=== PATIENT | female | born 1990 | race Caucasian/White ===

== ENCOUNTER 2022-11-12 13:40 | Emergency (ER) | payer MEDICAID, SELFPAY ==
[2022-11-12 13:52] VITALS: BP 122/76; PULSE 118; RESP 15; TEMP 36.9; O2SAT 100
--- NOTE | 2022-11-12 14:15 | DI.RAD_ITS ---
Exam(s) XR ANKLE RT COMPLETE EXAM: XR ANKLE RT COMPLETE CLINICAL HISTORY: pain. TECHNIQUE: 2D digital imaging was performed. Three views. COMPARISON: No exams were available for comparison FINDINGS: BONES: There is a small sliver of bone adjacent to the tip of the lateral malleolus could represent a n acute avulsion fracture. Additional well corticated bony density seen between the fibula and talus which appears old. No bony destructive lesion is seen. JOINTS: The ankle mortise is normally aligned. SOFT TISSUE: Mild swelling. IMPRESSION: Avulsion fracture of the tip of the lateral malleolus. DATA REPOSITORY: RADIATION DOSE DELIVERED:
--- NOTE | 2022-11-12 15:14 | ED.GENADUL_ITS ---
Discharge Plan Disposition Patient Disposition: Home Condition: Stable Discharge Details Clinical Impression: Avulsion fracture of lateral malleolus of right fibula Primary Care Provider: Kian Coughlin ED Provider: Chuy Blankenship Home Meds and New Rx's Prescriptions: Continued cetirizine [Zyrtec] 10 mg Tablet 10 mg PO DAILY Asmanex Twisthaler 220 mcg/ actuation (120) aerosol powdr breath activated 2 inh INHALATION QHS Patient Comments: INHALE 2 PUFFS BY INHALATION ROUTE EVERY DAY AT NIGHTTIME Vyvanse 10 mg capsule 10 mg PO DAILY Patient Comments: TAKE 1 CAPSULE BY MOUTH TWICE A DAY Rx Instructions: can take BID PRN Discharge Instructions Instructions: Ankle Fracture (ED) Additional Instructions: Use orthopedic boot and crutches over the next 2 weeks. Weight-bear as tolerated. Please follow-up with orthopedics. Please take ibuprofen over the counter. Take 600mg by mouth every 6 hours as needed for pain. Please contact your primary care physician to arrange follow-up. Return to the ER immediately for any worsening or new concerning symptoms. Referrals: [facility] [Provider Group] Medical Decision Making 32-year-old female here after inversion injury to her right ankle last night. Patient has prior remote history of right ankle fracture. Patient is tender lateral malleolus. Concern for fracture versus sprain. X-ray of the right ankle was interpreted by radiology: Avulsion fracture of the tip of the lateral malleolus. Plan to immobilize with orthopedic boot and provide crutches. Weightbearing as tolerated. I will have her follow-up with orthopedics. Usual customary discharge instructions reviewed the patient. HPI General Mode of arrival: ambulatory . Date/Time Provider Initiated Documentation: 11/12/22 14:29 . Limitations to Documentation: no limitations . Information obtained by: patient . HPI Narrative: 32-year-old female presents with chief complaint of ankle pain. Patient notes last night she tripped while chasing her dog and inverted her right ankle. She notes she fractured her ankle remotely. Pain is localized to lateral malleolus and worse with ambulation. No associated numbness or tingling. No other injury. She has no proximal lower leg pain. Related Data Home Medications Medication Instructions Recorded Confirmed cetirizine 10 mg tablet (Zyrtec) 10 mg PO DAILY 11/12/22 11/12/22 lisdexamfetamine 10 mg capsule 10 mg PO DAILY 11/12/22 11/12/22 (Vyvanse) mometasone 220 mcg/actuation(120 2 inh inhalation QHS 11/12/22 11/12/22 doses)breath activated powder inhaler (Asmanex Twisthaler) Allergies Allergy/AdvReac Type Severity Reaction Status Date / Time epinephrine Allergy Severe Other (See Unverified 11/12/22 14:00 Comment) sertraline Allergy Severe Psychosis Unverified 11/12/22 14:00 General Stated Complaint: Orthopedic CRESENCIO: 4 Review of Systems Musculoskeletal Musculoskeletal: Reports as per HPI PFSH All Active Problems Avulsion fracture of lateral malleolus of right fibula (Acute) Social History Smoking/Tobacco Use Status: Never Smoking risk assessment performed?: Yes Alcohol Intake: never Drug use: Never Substance use type: does not use Do you feel safe at home: Yes Do you feel safe in your relationship?: Yes Exam Extrem Right lower extremity: lower leg Details: normal to inspection, ankle Details: tenderness Location: of the lateral malleolus, swelling Details: laterally and abnormal ROM Details: pain with active ROM Details: with plantar flexion, with dorsiflexion and with inversion and foot Details: normal to inspection Course Vital Signs Vital signs: Vital Signs Temperature 36.9 C 11/12/22 13:52 Pulse 118 H 11/12/22 13:52 Respiratory Rate 15 11/12/22 13:52 Blood Pressure 122/76 11/12/22 13:52 Pulse Oximetry 100 11/12/22 13:52 Temperature 36.9 C 11/12/22 13:52 Temperature Source Temporal Artery Scan 11/12/22 13:52 Pulse 118 H 11/12/22 13:52 Respiratory Rate 15 11/12/22 13:52 Respiratory Effort Normal 11/12/22 13:56 Blood Pressure 122/76 11/12/22 13:52 Blood Pressure Position Sitting 11/12/22 13:52 Pulse Oximetry 100 11/12/22 13:52 Oxygen Delivery Method Room Air 11/12/22 13:52 Oxygen Flow Rate 0 11/12/22 13:52 Pain Level 7 11/12/22 14:01
== END 2022-11-12 15:34 | disposition home or self-care (01) ==
PROVIDERS: Emergency Provider Student in an Organized Health Care Education/Training Program; PCP Nurse Practitioner Family
DX: S82.61XA Displaced fracture of lateral malleolus of right fibula, initial encounter for closed fracture (principal); W01.0XXA Fall on same level from slipping, tripping and stumbling without subsequent striking against object, initial encounter
CPT/HCPCS: 99283; 73610

== ENCOUNTER 2023-03-19 14:22 | Outpatient (REF) | payer MEDICAID, SELFPAY ==
--- NOTE | 2023-03-19 14:06 | SOFT_PTH ---
PATIENT: Deborah Benoit LOC: [facility] U#:[id number] AGE/SX: 32/F ROOM: RE03/19/[address]: PHILIPPE Redmond : 1990 BED: DIS: 03/19/2023 SPEC #: [id number] RECD: 03/19/23 17:39 STATUS: SIDDHARTH REQ #: [id number] DAGO: 03/19/23 14:[address]: Louise Maciel DEPT: Surgical Specimen RECD BY: Makeda Gardner ENTERED: 03/19/23 17:39 SP TYPE: SOFT OTHR DR: Kian Coughlin Tissues: 1 - SOFT TISSUE MISC (INC. LIPOMA) Procedures: GROSS AND MICRO LEVEL 3 Comments: [id number]
== END 2023-03-19 14:23 | disposition home or self-care (01) ==
LOC: LBN 14:22
PROVIDERS: PCP Nurse Practitioner Family; Visit Provider Physical Therapy Assistant
DX: D17.23 Benign lipomatous neoplasm of skin and subcutaneous tissue of right leg (principal)
CPT/HCPCS: 88304

== ENCOUNTER 2023-07-22 15:11 | Outpatient (CLI) | payer MEDICAID, SELFPAY ==
--- NOTE | 2023-07-22 15:00 | RT.EKG_ITS ---
APPROVED REPORT Exam: Resting ECG Reason for Exam: chest discomfort Patient Location: O HR:105 bpm ECG Measurements Heart Rate 105 AXIS AR 127 P 69 QRSd 83 QRS 62 QT 317 T 31 QTc 420 Conclusion Sinus tachycardia...rate> 99 Atrial premature complex...SV complex w/ short R-R interval Probable left atrial enlargement...P >50mS, <-0.10mV V1 RSR' in V1, normal variant
== END 2023-07-22 15:12 | disposition home or self-care (01) ==
LOC: DI.CM 15:12
PROVIDERS: PCP Nurse Practitioner Family; Visit Provider Nurse Practitioner Family
DX: R07.89 Other chest pain (principal)
CPT/HCPCS: 93010

== ENCOUNTER 2023-08-21 13:20 | Emergency (ER) | payer MEDICAID, SELFPAY ==
[2023-08-21] VITALS (13 sets, daily range): BP systolic 106–138; BP diastolic 55–98; PULSE 65–119; RESP 16–18; TEMP 36.1–37.2; O2SAT 98
--- NOTE | 2023-08-21 13:30 | DI.CT_ITS ---
Exam(s) CT ABDOMEN PELVIS W EXAM: CT ABDOMEN PELVIS W CLINICAL HISTORY: RUQ abd pain, diarrhea TECHNIQUE: Imaging Protocol: Axial computed tomography images with coronal and sagittal reformatted images were created and reviewed. CONTRAST MATERIAL: Intravenous: Omnipaque 350 Contrast volume:100 mL Oral: No COMPARISON: No exams were available for comparison FINDINGS: ABDOMEN: Lung Bases: Normal where visualized. Liver: Normal density. No measurable mass. Portal, Superior Mesenteric, and Splenic Veins: Unremarkable. Gallbladder and Biliary Tract: No radiodense calculus or dilation. Pancreas: Normal density, no abnormal calcifications or inflammatory process. Spleen: Normal. Adrenals: No masses seen. Kidneys: Normal size, contour and axis. No radiodense stones or obstructive uropathy. No masses seen. Abdominal Aorta: Abdominal portion non-dilated. Bowel: There is mild bowel wall thickening seen in the ascending transverse and descending colons. T here is mild inflammation seen in the hepatic flexure. The findings are suspicious for colitis. The re is no evidence of bowel obstruction. Appendix is unremarkable. Peritoneal Cavity: No ascites, collection or mesenteric inflammatory response. No free air. Lymph Nodes: Within normal limits. Bones: Within normal limits for the patient's age. Soft Tissues: There is a small fat containing umbilical hernia. PELVIS: Bladder: The urinary bladder is incompletely distended limiting evaluation. Reproductive Organs: There is an IUD in good position. Lymph Nodes: Within normal limits. Bones: Within normal limits for the patient's age. IMPRESSION: Bowel wall thickening involving the distal ascending colon transverse colon and portions of the desce nding colon consistent with infectious/inflammatory colitis. RADIATION DOSE DELIVERED: 948.04mGy.cm Total DLP DATA REPOSITORY: All CT scans at this facility are submitted to the National Radiology Data Registry (NRDR) Dose Index Registry (DIR) with the [employer] (A[employer]). RADIATION OPTIMIZATION: All CT scans at this facility use at least one of these dose optimization te chniques: automated exposure control; mA and/or kV adjustment per patient size (includes targeted exa ms where dose is matched to clinical indication); or iterative reconstruction.
--- NOTE | 2023-08-21 13:38 | ED.GENADUL_ITS ---
Discharge Plan Disposition Patient Disposition: Home Condition: Improving Discharge Details Chief Complaint: Abd Prob Clinical Impression: Colitis Primary Care Provider: Kian Coughlin ED Provider: Ramiro Ambriz Home Meds and New Rx's Prescriptions: No Action Liletta 20.4 mcg/24 hrs (8 yrs) 52 mg intrauterine device 1 device intrauterine ONCE Rx Instructions: as a single dose levalbuterol tartrate [Xopenex HFA] 45 mcg/actuation HFA aerosol inhaler 2 inh inhalation Q6H Canabanoid oil 20 mg See Rx Instructions translingual .COMPLEX Rx Instructions: translingually; guanfacine 2 mg tablet 2 mg PO DAILY cetirizine [Zyrtec] 10 mg Tablet 10 mg PO DAILY Asmanex Twisthaler 220 mcg/ actuation (120) aerosol powdr breath activated 2 inh INHALATION QHS Patient Comments: INHALE 2 PUFFS BY INHALATION ROUTE EVERY DAY AT NIGHTTIME lisdexamfetamine [Vyvanse] 10 mg capsule 10 mg PO DAILY Patient Comments: TAKE 1 CAPSULE BY MOUTH TWICE A DAY Rx Instructions: can take BID PRN Discharge Instructions Instructions: Colitis (ED) HPI General Date/Time Provider Initiated Documentation: 08/21/23 13:24 . HPI Narrative: 32-year-old female presents with right upper quadrant abdominal pain, had diarrhea earlier today that is slowing down slight nausea no vomiting. Related Data Home Medications Medication Instructions Recorded Confirmed cetirizine 10 mg tablet (Zyrtec) 10 mg PO DAILY 11/12/22 08/21/23 lisdexamfetamine 10 mg capsule 10 mg PO DAILY 11/12/22 08/21/23 (Vyvanse) mometasone 220 mcg/actuation(120 2 inh inhalation QHS 11/12/22 08/21/23 doses)breath activated powder inhaler (Asmanex Twisthaler) levonorgestrel 20.4 mcg/24 hr (up 1 device intrauterine ONCE 11/27/22 08/21/23 to 8 yrs) 52 mg intrauterine device (Liletta) Canabanoid oil See Rx Instructions translingual 03/18/23 08/21/23 .COMPLEX guanfacine 2 mg tablet 2 mg PO DAILY 03/18/23 08/21/23 levalbuterol tartrate 45 2 inh inhalation Q6H 03/18/23 08/21/23 mcg/actuation aerosol inhaler (Xopenex HFA) Allergies Allergy/AdvReac Type Severity Reaction Status Date / Time sertraline Allergy Severe Psychosis Unverified 08/21/23 13:27 epinephrine AdvReac Severe Other (See Unverified 08/21/23 13:27 Comment) augmentin AdvReac Severe Nausea Uncoded 08/21/23 13:27 General Stated Complaint: Abd Prob CRESENCIO: 3 Review of Systems Narrative: Review of Systems Constitutional: negative Eyes: negative ENT: negative Cardiovascular: negative Respiratory: negative Gastrointestinal: Abdominal pain, diarrhea nausea : negative Musculoskeletal: negative Skin: negative Neurologic: negative Psych: negative Exam Narrative Exam Narrative: Physical Examination General: alert, awake, cooperative, resting comfortably, no acute distress HEENT: normocephalic, atraumatic; PERRL, EOM intact, conjunctiva normal; no nasal discharge; moist mucous membranes, oral and pharyngeal mucosa normal, tolerating secretions Neck: supple, trachea midline; full ROM Chest: normal to inspection Respiratory: normal respiratory effort, speaking in full sentences, clear to auscultation, no wheezing, rales or rhonchi Cardiac: regular rate, regular rhythm, S1S2 intact, no murmurs rubs or gallops GI: abdomen soft, non-tender, non-distended; no palpable mass or hepatosplenomegaly Skin: no lesions, rashes or trauma appreciated Neuro: AAOx3, normal speech, moving all extremities Psych: Appropriate mood and affect Course Vital Signs Vital signs: Vital Signs Temperature 37.2 C 08/21/23 13:22 Pulse 119 H 08/21/23 13:22 Respiratory Rate 18 08/21/23 13:22 Blood Pressure 133/83 08/21/23 13:22 Pulse Oximetry 98 08/21/23 13:22 Temperature 37.2 C 08/21/23 13:22 Pulse 119 H 08/21/23 13:22 Respiratory Rate 18 08/21/23 13:22 Respiratory Effort Normal, Non-Labored 08/21/23 13:26 Blood Pressure 133/83 08/21/23 13:22 Blood Pressure Position Sitting 08/21/23 13:22 Pulse Oximetry 98 08/21/23 13:22 Oxygen Delivery Method Room Air 08/21/23 13:22 Oxygen Flow Rate 0 08/21/23 13:22 Pain Level 0 08/21/23 13:22 Medical Decision Making 32-year-old female presents with resolving diarrhea, now with right upper quadrant discomfort rating to her shoulders, mild nausea without vomiting. Family history of gallbladder issues. Abdomen soft nontender nondistended afebrile nontoxic moderately tachycardic on arrival. No active vomiting. Moist mucous membranes. Consider biliary colic versus gastroenteritis versus gastritis versus early cholecystitis versus appendicitis lower suspicion for pancreatitis. Will obtain urinalysis urine test. Bedside ultrasound showing normal thickness gallbladder no pericholecystic fluid or biliary stones. Gallbladder wall thickness 2 mm on bedside ultrasound. Will obtain basic labs CT abdomen pelvis fluids analgesia antiemetics close reassessment. Patient was on antibiotics recently doxycycline and Augmentin for sinusitis. Must consider C. difficile colitis however diarrhea is improving patient is nontoxic nonperitoneal 16: 13 resting actively no acute distress. Evidence of colitis. C. difficile PCR sent. Patient feeling much better resting comfortably Home care instruction return precautions given Quality:SDOH Health Related Social Needs: No Data to Display PFSH All Active Problems (Updated 08/21/23 @ 16:14 by Ramiro Ambriz MD) Colitis (Acute) Subcutaneous mass of right lower extremity (Acute) Medical History (Updated 08/21/23 @ 16:14 by Ramiro Ambriz MD) Generalized anxiety disorder ADHD Social History Smoking/Tobacco Use Status: Never Smoking risk assessment performed?: Yes Alcohol Intake: never Drug use: Never Substance use type: marijuana Details: CBD gummies at night to sleep. Do you feel safe at home: Yes Do you feel safe in your relationship?: Yes
[2023-08-21] MEDS: Normal Saline 1,000 ML 1000 ML IV (13:59)
[2023-08-21] MEDS: ACETAMINOPHEN 1,000 MG/100 ML BTL 400 MG IVPB (13:59)
[2023-08-21 14:07] LABS: Abs Immature Grans 0.05 10^3/uL (0.0-0.06); Absolute Basophil Count 0.05 10^3/uL (0.0-0.2); Absolute Eosinophil Count 0.09 10^3/uL (0.0-0.7); Absolute Lymphocyte Count 0.83 10^3/uL (1.2-3.4); Absolute Neutrophil Count 13.74 10^3/uL (1.2-6.7); Basophils % 0.3 %; Eosinophils % 0.6 %; HGB 14.9 g/dL (11.2-15.7); Immature Grans % 0.3 %; Lymphocytes % 5.4 %; MCHC 33.1 % (32.0-36.0); MCV 91 fL (80-95); MPV 10.1 fL (8.0-11.0); Monocytes % 4.5 %; Neutrophils % 88.9 %; Platelet Count 313 10^3/uL (130-400); RBC 4.97 10^6/uL (3.93-5.22); RDW 13.1 % (11.7-14.6); RDW-SD 43.8 fL; WBC 15.46 10^3/uL (4.4-10.8)
[2023-08-21 14:22] LABS: Bilirubin Negative (Negative); Blood Negative (Negative); Clarity Clear (Clear); Glucose Negative (Negative); Ketones Negative (Negative); Leukocyte Esterase Trace (Negative); Nitrite Negative (Negative); Urobilinogen 0.2 mg/dL (Up to 0.2)
[2023-08-21 14:26] LABS: ALT 103 U/L (14-59); AST 110 U/L (15-37); Albumin 4.3 g/dL (3.4-5.0); Alkaline Phosphatase 73 U/L (46-116); Anion Gap 11.1 mmol/L (3-11); BUN 10 mg/dL (7-18); CO2 26.9 mmol/L (21.0-32.0); CREATININE 0.8 mg/dL (0.55-1.02); Calcium 8.9 mg/dL (8.5-10.1); Chloride 104 mmol/L (98-107); Estimated GFR 100.96 (mL/min/1.73m2); Glucose 96 mg/dL (74-106); Lipase 28 U/L (16-77); Potassium 3.6 mmol/L (3.5-5.1); Sodium 142 mmol/L (136-145); Total Protein 8.2 g/dL (6.4-8.2)
[2023-08-21 14:32] LABS: Bacteria Rare HPF (Negative); C & S Indicated? No; Casts Negative LPF (Negative); Crystals Negative HPF (Negative); Epithelial Cells Rare HPF (Negative); Mucus Trace (Negative); Other Cells Negative (Negative); RBC Negative HPF (0-2); WBC 0-2 HPF (0-5)
[2023-08-21] MEDS: Omnipaque 350 MG/ML 100 ML BTL IJ (15:11)
== END 2023-08-21 17:04 | disposition home or self-care (01) ==
PROVIDERS: Emergency Provider Emergency Medicine; PCP Nurse Practitioner Family
DX: K52.9 Noninfective gastroenteritis and colitis, unspecified (principal); Z97.5 Presence of (intrauterine) contraceptive device
CPT/HCPCS: 80053; 83690; 87493; 96374; 99285; 74177; 81003; 81015; 85025; 99284; J0131; J3490

== ENCOUNTER 2023-10-09 14:46 | Outpatient (CLI) | payer MEDICAID, SELFPAY ==
[2023-10-09 14:28] LABS: Calculated LDL 90 mg/dL (<100); Cholesterol 158 mg/dL (<200); Ferritin 109 ng/mL (8-252); HDL Cholesterol 51 mg/dL (40-60); TSH (W/Ref FT4) 1.01 uIU/mL (0.36-3.74); Triglyceride 88 mg/dL (<150)
[2023-10-09 14:36] LABS: C-Reactive Protein < 0.50 mg/dL (<or=0.5)
[2023-10-10 11:44] LABS: IgA 173 mg/dL (85-499); Interpretation (See Note); Tissue Transglutaminase IgA <4.0 CU (<20.0)
[2023-10-11 14:08] LABS: ANCA Interpretation Negative (Negative)
[2023-10-11 14:11] LABS: ANA Interpretation Negative (Negative)
[2023-10-11 15:52] LABS: c-ANCA Negative (Negative); p-ANCA Negative (Negative)
== END 2023-10-09 14:47 | disposition home or self-care (01) ==
LOC: LBO 14:48
PROVIDERS: PCP Nurse Practitioner Family; Visit Provider Surgery
DX: F90.9 Attention-deficit hyperactivity disorder, unspecified type (principal); F41.1 Generalized anxiety disorder; R10.11 Right upper quadrant pain; R19.7 Diarrhea, unspecified; Z83.79 Family history of other diseases of the digestive system; K52.9 Noninfective gastroenteritis and colitis, unspecified
CPT/HCPCS: 36415; 80061; 82784; 83516; 86255; 82728; 84443; 86038; 86140

== ENCOUNTER 2023-10-09 15:15 | Outpatient (REF) | payer MEDICAID, SELFPAY ==
[2023-10-10 11:14] LABS: Campylobacter PCR Negative (Negative); Salmonella PCR Negative (Negative); Shiga Toxin PCR Negative (Negative); Shigella/Enteroinvasive Ecoli Negative (Negative)
[2023-10-12 14:25] LABS: Pancreatic Elastase, F 353 mcg/g
[2023-10-12 14:46] LABS: Calprotectin <50.0 mcg/g
== END 2023-10-09 15:16 | disposition home or self-care (01) ==
LOC: LBN 15:15
PROVIDERS: PCP Nurse Practitioner Family; Visit Provider Surgery
DX: F90.9 Attention-deficit hyperactivity disorder, unspecified type (principal); F41.1 Generalized anxiety disorder; R10.11 Right upper quadrant pain; R19.7 Diarrhea, unspecified; Z91.09 Other allergy status, other than to drugs and biological substances; K52.9 Noninfective gastroenteritis and colitis, unspecified; F84.0 Autistic disorder; J45.909 Unspecified asthma, uncomplicated; K58.2 Mixed irritable bowel syndrome
CPT/HCPCS: 87505; 82656; 83630; 83993

== ENCOUNTER → 2023-10-15 01:13 | Outpatient (CLI) | payer MEDICAID, SELFPAY ==
--- NOTE | 2023-10-15 06:30 | DI.US_ITS ---
Exam(s) US ABDOMEN EXAM: US ABDOMEN CLINICAL HISTORY: ruq pain and diarrhea,r19.7,r10.11 TECHNIQUE: Ultrasound abdomen performed using standard protocol. COMPARISON: CT CT ABDOMEN PELVIS W from 08/21/2023 FINDINGS: LIVER: Normal size and echogenicity. No focal liver lesions are seen. GALLBLADDER: No evidence of cholelithiasis. No evidence of wall thickening. No pericholecystic fluid identified. VAN'S SIGN: Negative. BILIARY SYSTEM: No intrahepatic or extrahepatic biliary ductal dilation. KIDNEYS: Kidneys are symmetric in size. No evidence of renal calculi. No evidence of hydronephrosis. No renal mass or cyst identified. PANCREAS: Normal where visualized. SPLEEN: Not enlarged. ABDOMINAL AORTA AND IVC: Visualized portions normal caliber. ASCITES: None seen. IMPRESSION: Normal sonographic appearance of the upper abdomen. DATA REPOSITORY:
== END ==
PROVIDERS: PCP Nurse Practitioner Family; Visit Provider Surgery
DX: R10.11 Right upper quadrant pain (principal); R19.7 Diarrhea, unspecified
CPT/HCPCS: 76700

== ENCOUNTER → 2023-10-29 00:45 | Outpatient (CLI) | payer MEDICAID, SELFPAY ==
--- NOTE | 2023-10-29 06:45 | DI.NM_ITS ---
Exam(s) NM HEPATOBILIARY CCK GRP EXAM: NM HEPATOBILIARY CCK GRP CLINICAL HISTORY: ruq pain/diarrhea/nl US,r10.11,family h/o gb disease. TECHNIQUE: Injected dose: 5 mCi Tc-99 mebrofenin Initial dynamic images: 60 minutes Post-Gallbladder fillin.2 mcg CCK intravenously as protocol. Addition images: As per protocol. COMPARISON: US US ABDOMEN from 10/15/2023 FINDINGS: Normal hepatic transit time. Prompt excretion into the small bowel. Prompt excretion into the gallbladder. There is a gallbladder ejection fraction of 65 percent. This is within normal limits. IMPRESSION: 1. CCK HIDA scan which is within normal limits with a gallbladder ejection fraction of 65 percent. ( Normal in VR 8 gallbladder ejection fraction is greater than 40 percent). SNM guidelines: Gallbladder visualization should be present by 3 hours. Delayed [id number] lopez sit beyond 60 min raises the suspicion for partial common bile duct (CBD) obstruction.
[2023-10-29] MEDS: Sincalide 5 MCG VIAL 1.2 MCG IJ (09:44)
[2023-10-29] MEDS: Water,Injection,Sterile 10 ML VIAL IJ (09:45)
== END ==
PROVIDERS: PCP Nurse Practitioner Family; Visit Provider Surgery
DX: Z83.79 Family history of other diseases of the digestive system (principal); K52.9 Noninfective gastroenteritis and colitis, unspecified; R10.11 Right upper quadrant pain; F84.0 Autistic disorder; J45.909 Unspecified asthma, uncomplicated
CPT/HCPCS: 78227; J2805

== ENCOUNTER 2024-03-09 11:04 | Emergency (ER) | payer MEDICAID, SELFPAY ==
[2024-03-09 11:05] VITALS: BP 127/75; PULSE 97; RESP 16; TEMP 36.3
--- NOTE | 2024-03-09 11:15 | DI.RAD_ITS ---
Exam(s) XR ELBOW RT COMPLETE EXAM: XR ELBOW RT COMPLETE CLINICAL HISTORY: fall, pain to lateral elbow. TECHNIQUE: 2D digital imaging was performed. Three views. COMPARISON: No exams were available for comparison FINDINGS: BONES: No acute fracture is present. No bony destructive lesion is seen. JOINTS: The elbow is normally aligned. No joint effusion is seen. SOFT TISSUE: Normal. IMPRESSION: Unremarkable radiographs of the right elbow. DATA REPOSITORY: RADIATION DOSE DELIVERED:
[2024-03-09] MEDS: Diph,Pertuss(Acell),Tet Vac/Pf 0.5 ML SYR IM (11:42)
[2024-03-09 12:19] VITALS: BP 111/71; PULSE 83; RESP 16; O2SAT 100
--- NOTE | 2024-03-09 12:29 | ED.GENADUL_ITS ---
Discharge Plan Disposition Patient Disposition: Home Discharge Details Clinical Impression: Contusion of right elbow, Abrasion, Contusion of left anterior thigh Primary Care Provider: Kian Coughlin ED Provider: Makeda Rousseau Home Meds and New Rx's Prescriptions: Continued Liletta 20.4 mcg/24 hrs (8 yrs) 52 mg intrauterine device 1 device intrauterine ONCE Rx Instructions: as a single dose Canabanoid oil 20 mg See Rx Instructions translingual .COMPLEX Rx Instructions: translingually; levalbuterol tartrate [Xopenex HFA] 45 mcg/actuation HFA aerosol inhaler 2 inh inhalation Q6H PRN guanfacine 2 mg tablet 2 mg PO DAILY cetirizine [Zyrtec] 10 mg Tablet 10 mg PO DAILY Asmanex Twisthaler 220 mcg/ actuation (120) aerosol powdr breath activated 2 inh INHALATION QHS Patient Comments: INHALE 2 PUFFS BY INHALATION ROUTE EVERY DAY AT NIGHTTIME lisdexamfetamine [Vyvanse] 10 mg capsule 10 mg PO DAILY Patient Comments: TAKE 1 CAPSULE BY MOUTH TWICE A DAY Rx Instructions: can take BID PRN Discharge Instructions Instructions: Acute Pain, Adult Additional Instructions: Wear your sling but continue to range her shoulder so it does not become stiff Take Tylenol and ibuprofen as needed for discomfort Wash the wound once daily and apply bacitracin Please be reevaluated in 1 week with persistent pain Return earlier should you have new or worsening complaints Referrals: Kian Coughlin [Primary Care Provider] - 1 week HPI General Date/Time Provider Initiated Documentation: 03/09/24 11:16 . HPI Narrative: This 33-year-old female presents after fall down approximately 12 wooden steps. She states she did not hit her head or neck. She predominately is having pain in her right elbow. She also states she has a bruise on her left thigh. She is not per patient. She denies any nausea or vomiting or history of coagulopathy. She denies any abdominal pain or flank pain. She denies any blood in her urine. Related Data Home Medications ?Medication ?Instructions ?Recorded ?Confirmed cetirizine 10 mg tablet (Zyrtec) 10 mg PO DAILY 11/12/22 03/09/24 lisdexamfetamine 10 mg capsule 10 mg PO DAILY 11/12/22 03/09/24 (Vyvanse) mometasone 220 mcg/actuation(120 2 inh inhalation QHS 11/12/22 03/09/24 doses)breath activated powder inhaler (Asmanex Twisthaler) levonorgestrel 20.4 mcg/24 hr (up 1 device intrauterine ONCE 11/27/22 03/09/24 to 8 yrs) 52 mg intrauterine device (Liletta) Canabanoid oil See Rx Instructions translingual 03/18/23 03/09/24 .COMPLEX guanfacine 2 mg tablet 2 mg PO DAILY 03/18/23 03/09/24 levalbuterol tartrate 45 2 inh inhalation Q6H PRN 10/09/23 03/09/24 mcg/actuation aerosol inhaler (Xopenex HFA) Allergies Allergy/AdvReac Type Severity Reaction Status Date / Time sertraline Allergy Severe Psychosis Unverified 03/09/24 11:11 epinephrine AdvReac Severe Other (See Unverified 03/09/24 11:11 Comment) augmentin AdvReac Severe Nausea Uncoded 03/09/24 11:11 General Stated Complaint: Orthopedic CRESENCIO: 4 Exam Narrative Exam Narrative: 33-year-old female in no acute distress, alert and oriented, GCS 15, pupils equal round reactive to light and accommodation, no cervical spine tenderness, lungs clear to auscultation, cardiac rate rhythm regular, no CVA tenderness, no anterior abdominal tenderness, alert and oriented x 4, bruise and abrasion noted to right elbow,, ecchymosis noted to left lateral thigh without significant tenderness, no pelvic tenderness, range of motion of left hip intact in left knee. Elbow with range of motion neurovascularly intact Course Vital Signs Vital signs: Vital Signs Temperature 36.3 C L 03/09/24 11:05 Pulse 97 H 03/09/24 11:05 Respiratory Rate 16 03/09/24 11:05 Blood Pressure 127/75 03/09/24 11:05 Temperature 36.3 C L 03/09/24 11:05 Temperature Source Oral 03/09/24 11:05 Pulse 83 03/09/24 12:19 Respiratory Rate 16 03/09/24 12:19 Respiratory Effort Normal, Non-Labored 03/09/24 11:12 Blood Pressure 111/71 03/09/24 12:19 Blood Pressure Position Sitting 03/09/24 11:05 Pulse Oximetry 100 03/09/24 12:19 Oxygen Delivery Method Room Air 03/09/24 12:19 Oxygen Flow Rate 0 03/09/24 12:19 Pain Level 5 03/09/24 11:05 Medical Decision Making 33-year-old female presenting in no acute distress, right elbow and hip injury. Tetanus not up-to-date. Tetanus updated during encounter. X-ray of right elbow was ordered for further evaluation which does not show evidence of acute fracture per radiology interpretation and my review. Patient was given a sling with frozen shoulder precautions. Return precautions reviewed and patient expressed understanding. Quality:SDOH Health Related Social Needs: No Data to Display PFSH All Active Problems (Updated 03/09/24 @ 12:26 by PHILIPPE Mckeon) Contusion of left anterior thigh (Acute) Abrasion (Acute) Contusion of right elbow (Acute) Family history of gallbladder disease in mother (Acute) Chronic diarrhea (Acute) Environmental allergies (Acute) Asthma (Chronic) Autistic disorder (Acute) Acute diarrhea (Acute) RUQ abdominal pain (Acute) Subcutaneous mass of right lower extremity (Acute) Medical History (Updated 03/09/24 @ 12:26 by PHILIPPE Mckeon) Generalized anxiety disorder ADHD Social History Smoking/Tobacco Use Status: Never Smoking risk assessment performed?: Yes Alcohol Intake: never Drug use: Never Substance use type: marijuana Details: CBD gummies at night to sleep. Do you feel safe at home: Yes Do you feel safe in your relationship?: Yes
== END 2024-03-09 12:42 | disposition home or self-care (01) ==
PROVIDERS: Emergency Provider Physician Assistant; PCP Nurse Practitioner Family
DX: S50.01XA Contusion of right elbow, initial encounter (principal); S70.12XA Contusion of left thigh, initial encounter; Z23 Encounter for immunization; W10.8XXA Fall (on) (from) other stairs and steps, initial encounter; Y93.01 Activity, walking, marching and hiking; Y92.018 Other place in single-family (private) house as the place of occurrence of the external cause
CPT/HCPCS: 90471; 90715; 99284; 73080

== ENCOUNTER 2024-03-16 15:20 | Emergency (ER) | payer MEDICAID, SELFPAY ==
--- NOTE | 2024-03-16 15:30 | DI.RAD_ITS ---
Exam(s) XR ELBOW RT COMPLETE EXAM: XR ELBOW RT COMPLETE CLINICAL HISTORY: continued right elbow pain s/p fall. TECHNIQUE: 2D digital imaging was performed. Three views. COMPARISON: No exams were available for comparison FINDINGS: BONES: No acute fracture is present. No bony destructive lesion is seen. JOINTS: The elbow is normally aligned. No joint effusion is seen. SOFT TISSUE: Normal. IMPRESSION: Unremarkable radiographs of the right elbow. DATA REPOSITORY: RADIATION DOSE DELIVERED:
[2024-03-16 15:31] VITALS: BP 110/77; PULSE 102; RESP 20; TEMP 36.6; O2SAT 98
--- NOTE | 2024-03-16 15:43 | ED.GENADUL_ITS ---
Discharge Plan Disposition Patient Disposition: Home Condition: Stable Discharge Details Clinical Impression: Contusion of right elbow Primary Care Provider: Kian Coughlin ED Provider: Jose Coello Home Meds and New Rx's Prescriptions: Continued Liletta 20.4 mcg/24 hrs (8 yrs) 52 mg intrauterine device 1 device intrauterine ONCE Rx Instructions: as a single dose Canabanoid oil 20 mg See Rx Instructions translingual .COMPLEX Rx Instructions: translingually; levalbuterol tartrate [Xopenex HFA] 45 mcg/actuation HFA aerosol inhaler 2 inh inhalation Q6H PRN guanfacine 2 mg tablet 2 mg PO DAILY cetirizine [Zyrtec] 10 mg Tablet 10 mg PO DAILY Asmanex Twisthaler 220 mcg/ actuation (120) aerosol powdr breath activated 2 inh INHALATION QHS Patient Comments: INHALE 2 PUFFS BY INHALATION ROUTE EVERY DAY AT NIGHTTIME lisdexamfetamine [Vyvanse] 10 mg capsule 10 mg PO DAILY Patient Comments: TAKE 1 CAPSULE BY MOUTH TWICE A DAY Rx Instructions: can take BID PRN Discharge Instructions Additional Instructions: Your x-ray did not show any broken bones. If you are still having pain in 1 to 2 weeks can follow-up with either your primary care provider or orthopedics If you feel more ill, or have new symptoms such as high fevers return to the emergency department for reevaluation. HPI General Mode of arrival: ambulatory . Date/Time Provider Initiated Documentation: 03/16/24 15:21 . Limitations to Documentation: no limitations . Information obtained by: patient . History of Present Illness 33 year old F presents to the emergency department with the chief complaint of right elbow pain, described as moderate, Quality is described as aching, and is localized to the right and upper extremity. Patient reports no radiation. Patient started experiencing this week(s) (1) and it has been constant. Rest improves symptom(s), Movement worsens symptoms . Patient notes no other symptoms.. Patient did receive the following treatments prior to arrival, none Related Data Home Medications ?Medication ?Instructions ?Recorded ?Confirmed cetirizine 10 mg tablet (Zyrtec) 10 mg PO DAILY 11/12/22 03/16/24 lisdexamfetamine 10 mg capsule 10 mg PO DAILY 11/12/22 03/16/24 (Vyvanse) mometasone 220 mcg/actuation(120 2 inh inhalation QHS 11/12/22 03/16/24 doses)breath activated powder inhaler (Asmanex Twisthaler) levonorgestrel 20.4 mcg/24 hr (up 1 device intrauterine ONCE 11/27/22 03/16/24 to 8 yrs) 52 mg intrauterine device (Liletta) Canabanoid oil See Rx Instructions translingual 03/18/23 03/16/24 .COMPLEX guanfacine 2 mg tablet 2 mg PO DAILY 03/18/23 03/16/24 levalbuterol tartrate 45 2 inh inhalation Q6H PRN 10/09/23 03/16/24 mcg/actuation aerosol inhaler (Xopenex HFA) Allergies Allergy/AdvReac Type Severity Reaction Status Date / Time sertraline Allergy Severe Psychosis Unverified 03/16/24 15:33 epinephrine AdvReac Severe Other (See Unverified 03/16/24 15:33 Comment) augmentin AdvReac Severe Nausea Uncoded 03/16/24 15:33 General Stated Complaint: Orthopedic CRESENCIO: 4 Review of Systems All systems reviewed & are unremarkable except as noted in HPI and below Constitutional Constitutional: Denies weakness Musculoskeletal Musculoskeletal: Reports arthralgias Neurologic Neurologic: Denies weakness Exam Const General: no acute distress Orientation: alert HENNH Head: normal to inspection Ears: external ears normal General nose exam: external nose normal Mouth: moist mucous membranes Eyes General: appearance normal, both eyes and all related structures Neck Neck: normal visual inspection Resp Effort & Inspection: normal respiratory effort and able to speak in complete sentences Cardio Rate: regular rate Skin General skin exam: no rashes or lesions noted Neuro General: patient alert and patient oriented x3 Extrem General: full ROM and capillary refill normal Psych Mental Status: mental status grossly normal Course Vital Signs Vital signs: Vital Signs Temperature 36.6 C 03/16/24 15:31 Pulse 102 H 03/16/24 15:31 Respiratory Rate 20 03/16/24 15:31 Blood Pressure 110/77 03/16/24 15:31 Pulse Oximetry 98 03/16/24 15:31 Temperature 36.6 C 03/16/24 15:31 Pulse 102 H 03/16/24 15:31 Respiratory Rate 20 03/16/24 15:31 Respiratory Effort Normal 03/16/24 15:32 Blood Pressure 110/77 03/16/24 15:31 Blood Pressure Position Sitting 03/16/24 15:31 Pulse Oximetry 98 03/16/24 15:31 Oxygen Delivery Method Room Air 03/16/24 15:31 Oxygen Flow Rate 0 03/16/24 15:31 Medical Decision Making 33-year-old female comes in with continued right elbow pain. She fell approximately a week ago after slipping on water landing on her right elbow. She was seen in the ER and had x-rays done of the elbow which showed no acute findings. She continues to have pain in the right olecranon area so she when she tries to do things like shoveling so came here for evaluation. She has not had any new trauma. No fevers. There is no swelling of the elbow, there is some bruising. She has intact distal sensation and pulses. She has tenderness over the olecranon. I suspect contusion of the elbow, discussed with her we can repeat x-rays so these are like anatomy negative, she would like to proceed with this to exclude missed fracture on the initial x-rays. She has no swelling, warmth or redness of the elbow so doubt entities such as septic joint. X-ray negative, patient is stable. I suspect a bone contusion. I recommended following up with her PCP if not improving, she says that she seen orthopedics before so may reach out to them. Return precautions given. Differential Diagnosis Differential Diagnosis: Contusion, sprain, strain Quality:SDOH Health Related Social Needs: No Data to Display PFSH All Active Problems (Updated 03/16/24 @ 16:25 by Jose Coello MD) Contusion of left anterior thigh (Acute) Abrasion (Acute) Contusion of right elbow (Acute) Family history of gallbladder disease in mother (Acute) Chronic diarrhea (Acute) Environmental allergies (Acute) Asthma (Chronic) Autistic disorder (Acute) Acute diarrhea (Acute) RUQ abdominal pain (Acute) Subcutaneous mass of right lower extremity (Acute) Medical History (Updated 03/16/24 @ 16:25 by Jose Coello MD) Generalized anxiety disorder ADHD Social History Smoking/Tobacco Use Status: Never Smoking risk assessment performed?: Yes Alcohol Intake: never Drug use: Never Substance use type: marijuana Details: CBD gummies at night to sleep. Do you feel safe at home: Yes Do you feel safe in your relationship?: Yes
[2024-03-16 16:40] VITALS: BP 110/74; PULSE 98; RESP 18; TEMP 36.6; O2SAT 98
== END 2024-03-16 16:44 | disposition home or self-care (01) ==
PROVIDERS: Emergency Provider Emergency Medicine; PCP Nurse Practitioner Family
DX: S50.01XA Contusion of right elbow, initial encounter (principal); W18.39XA Other fall on same level, initial encounter; Y93.89 Activity, other specified; Y92.89 Other specified places as the place of occurrence of the external cause
CPT/HCPCS: 99283; 73080; 99284

== ENCOUNTER 2024-07-08 14:33 | Outpatient (CLI) | payer MEDICAID, SELFPAY ==
--- NOTE | 2024-07-08 14:30 | RT.EKG_ITS ---
APPROVED REPORT Exam: Resting ECG Reason for Exam: chest discomfort Patient Location: O HR:73 bpm ECG Measurements Heart Rate 73 AXIS WI 123 P 66 QRSd 81 QRS 63 QT 343 T 45 QTc 378 Conclusion Sinus rhythm...normal P axis, V-rate 50- 99 Probable left atrial enlargement...P >50mS, <-0.10mV V1
== END 2024-07-08 14:34 | disposition home or self-care (01) ==
LOC: DI.CM 14:33
PROVIDERS: PCP Nurse Practitioner Family; Visit Provider Nurse Practitioner Family
DX: R07.89 Other chest pain (principal)
CPT/HCPCS: 93010

== ENCOUNTER 2024-08-23 20:27 | Emergency (ER) | payer MEDICAID, SELFPAY ==
[2024-08-23] VITALS (11 sets, daily range): BP systolic 120–144; BP diastolic 73–86; PULSE 72–137; RESP 18–24; TEMP 37.7; O2SAT 91–100
--- NOTE | 2024-08-23 20:45 | ED.GENADUL_ITS ---
Discharge Plan Disposition Patient Disposition: Home Condition: Stable Discharge Details Clinical Impression: N&V (nausea and vomiting) Primary Care Provider: Kina Coughlin ED Provider: Jose Coello Home Meds and New Rx's Prescriptions: New ondansetron 4 mg tablet,disintegrating 4 mg PO Q8H PRN (Reason: nausea and vomiting) Qty: 30 0RF Continued clindamycin phosphate 1 % solution 1 applic topical DAILY Qty: 60 0RF Liletta 20.4 mcg/24 hrs (8 yrs) 52 mg intrauterine device 1 device intrauterine ONCE Rx Instructions: as a single dose Canabanoid oil 20 mg See Rx Instructions translingual .COMPLEX Rx Instructions: translingually; levalbuterol tartrate [Xopenex HFA] 45 mcg/actuation HFA aerosol inhaler 2 inh inhalation Q6H PRN guanfacine 2 mg tablet 2 mg PO DAILY cetirizine [Zyrtec] 10 mg Tablet 10 mg PO DAILY Asmanex Twisthaler 220 mcg/ actuation (120) aerosol powdr breath activated 2 inh INHALATION QHS Patient Comments: INHALE 2 PUFFS BY INHALATION ROUTE EVERY DAY AT NIGHTTIME lisdexamfetamine [Vyvanse] 10 mg capsule 10 mg PO DAILY Patient Comments: TAKE 1 CAPSULE BY MOUTH TWICE A DAY Rx Instructions: can take BID PRN Discharge Instructions Additional Instructions: Try to drink fluids to stay hydrated. You are likely suffering from a viral illness that will run its course over the next few days. You can take 1000 mg of acetaminophen and 600 mg of ibuprofen every 6 hours as needed. If not improving within 3 to 5 days follow-up with your primary care provider. If you feel significantly more ill or have new symptoms such as difficulty breathing return to the emergency department for reevaluation. HPI General Mode of arrival: ambulatory . Date/Time Provider Initiated Documentation: 08/23/24 20:28 . Limitations to Documentation: no limitations . Information obtained by: patient . History of Present Illness 33 year old F presents to the emergency department with the chief complaint of n/v/d, headache, described as moderate, Patient started experiencing this hour(s) (17) and it has been constant. No relieving factors improve symptom(s), No exacerbating factors reported . Patient notes fever/chills and nausea/vomiting. Related Data Home Medications ?Medication ?Instructions ?Recorded ?Confirmed cetirizine 10 mg tablet (Zyrtec) 10 mg PO DAILY 11/12/22 07/17/24 lisdexamfetamine 10 mg capsule 10 mg PO DAILY 11/12/22 07/17/24 (Vyvanse) mometasone 220 mcg/actuation(120 2 inh inhalation QHS 11/12/22 07/17/24 doses)breath activated powder inhaler (Asmanex Twisthaler) levonorgestrel 20.4 mcg/24 hr (up 1 device intrauterine ONCE 11/27/22 07/17/24 to 8 yrs) 52 mg intrauterine device (Liletta) Canabanoid oil See Rx Instructions translingual 03/18/23 07/17/24 .COMPLEX guanfacine 2 mg tablet 2 mg PO DAILY 03/18/23 07/17/24 levalbuterol tartrate 45 2 inh inhalation Q6H PRN 10/09/23 07/17/24 mcg/actuation aerosol inhaler (Xopenex HFA) clindamycin phosphate 1 % topical 1 applic topical DAILY #60 mL 07/08/24 07/17/24 solution ondansetron 4 mg disintegrating 4 mg PO Q8H PRN nausea and 08/23/24 tablet vomiting #30 tabs Previous Rx's ?Medication ?Instructions ?Recorded clindamycin phosphate 1 % topical 1 applic topical DAILY #60 mL 07/08/24 solution ondansetron 4 mg disintegrating 4 mg PO Q8H PRN nausea and 08/23/24 tablet vomiting #30 tabs Allergies Allergy/AdvReac Type Severity Reaction Status Date / Time sertraline Allergy Severe Psychosis Unverified 07/17/24 17:36 epinephrine AdvReac Severe Other (See Unverified 07/17/24 17:36 Comment) augmentin AdvReac Severe Nausea Uncoded 07/17/24 17:36 General Stated Complaint: Abd Prob CRESENCIO: 3 Review of Systems All systems reviewed & are unremarkable except as noted in HPI and below Constitutional Constitutional: Reports chills, Reports fever(s) and Denies weakness Cardiovascular Cardiovascular: Denies chest pain and Denies dyspnea Respiratory Respiratory: Denies cough and Denies dyspnea Gastrointestinal Gastrointestinal: Reports nausea and Reports vomiting Integumentary/Breasts Skin/Breast: Denies rash Neurologic Neurologic: Denies weakness Psychiatric Psychiatric: Denies depression Exam Const General: no acute distress Orientation: alert HENMT Head: normal to inspection Ears: external ears normal, TM's normal bilaterally, EAC's normal and mastoids n ormal General nose exam: external nose normal Mouth: moist mucous membranes Throat: uvula midline Eyes General: appearance normal, both eyes and all related structures Neck Neck: normal visual inspection Resp Effort & Inspection: normal respiratory effort and able to speak in complete sentences Cardio Rate: regular rate GI Palpation: soft and nontender Skin General skin exam: no rashes or lesions noted Neuro General: patient alert and patient oriented x3 Extrem General: normal to inspection Psych Mental Status: mental status grossly normal Course Vital Signs Vital signs: Vital Signs Temperature 37.7 C H 08/23/24 20:33 Pulse 135 H 08/23/24 20:33 Respiratory Rate 24 08/23/24 20:33 Blood Pressure 120/86 08/23/24 20:33 Pulse Oximetry 98 08/23/24 20:33 Temperature 37.7 C H 08/23/24 20:33 Temperature Source Oral 08/23/24 20:33 Pulse 135 H 08/23/24 20:33 Respiratory Rate 24 08/23/24 20:33 Blood Pressure 120/86 08/23/24 20:33 Blood Pressure Position Sitting 08/23/24 20:33 Pulse Oximetry 98 08/23/24 20:33 Oxygen Delivery Method Room Air 08/23/24 20:33 Oxygen Flow Rate 0 08/23/24 20:33 Medical Decision Making 33-year-old female who states that she has been having migraines comes in with nausea vomiting diarrhea along with sinus pressure pain and migraine starting around 3 in the morning. She has had subjective fevers at home and has a temperature of 37.7 states she has bodyaches. Denies any difficulty breathing or cough. No severe abdominal pain or chest pain. She is speaking full sentences oriented x 4. The headache that she has in the worst of her life and slowly has worsened throughout the day. She has normal TMs bilaterally, normal posterior pharynx. Soft nontender abdomen. I suspect viral illness versus sinusitis versus migraine, she has no meningismus to suggest RN TRANSFER infection. Story is not typical for subarachnoid hemorrhage so I do not feel CT imaging with read is indicated. Will treat her symptoms with Toradol, dexamethasone and Compazine Benadryl and check a CBC, CMP and Fluvid and reassess. Labs without emergent findings, has mildly low magnesium. Fluvid unfortunately was not sent, she is feeling better and is requesting discharge from home so do not feel obtaining Fluvid is necessary. She will follow-up with her PCP if not improving and return precautions given. I suspect she has a viral illness that will resolve over the next few days. Quality:[facility] Health Related Social Needs: No Data to Display PFSH All Active Problems (Updated 08/23/24 @ 21:54 by Jose Coello MD) N&V (nausea and vomiting) (Acute) Phantosmia (Acute) Family history of gallbladder disease in mother (Acute) Chronic diarrhea (Acute) Environmental allergies (Acute) Asthma (Chronic) Autistic disorder (Acute) Acute diarrhea (Acute) RUQ abdominal pain (Acute) Subcutaneous mass of right lower extremity (Acute) Medical History Generalized anxiety disorder ADHD Surgical History S/p bilateral myringotomy with tube placement History of adenoidectomy Social History Smoking/Tobacco Use Status: Never Smoking risk assessment performed?: Yes Alcohol Intake: never Drug use: Never Substance use type: marijuana Details: CBD gummies at night to sleep. Do you feel safe at home: Yes Do you feel safe in your relationship?: Yes
[2024-08-23] MEDS: Prochlorperazine 10 MG/2 ML VIAL IVP (21:05)
[2024-08-23] MEDS: Ketorolac 15 MG/ML VIAL IVP (21:06)
[2024-08-23] MEDS: Dexamethasone 10 MG/ML VIAL IVP (21:07)
[2024-08-23] MEDS: Normal Saline 1,000 ML 1000 ML IV (21:08)
[2024-08-23 21:09] LABS: Abs Immature Grans 0.04 10^3/uL (0.0-0.06); Absolute Basophil Count 0.01 10^3/uL (0.0-0.2); Absolute Lymphocyte Count 0.25 10^3/uL (1.2-3.4); Absolute Monocyte Count 0.52 10^3/uL (0.1-0.8); Absolute Neutrophil Count 9.79 10^3/uL (1.2-6.7); Basophils % 0.1 %; HCT 43.2 % (36.0-46.0); HGB 14.4 g/dL (11.2-15.7); Immature Grans % 0.4 %; Lymphocytes % 2.4 %; MCH 29.6 pg (27.0-33.0); MCHC 33.3 % (32.0-36.0); MCV 89 fL (80-95); MPV 10.2 fL (8.0-11.0); Monocytes % 4.9 %; Neutrophils % 92.2 %; Platelet Count 295 10^3/uL (130-400); RBC 4.87 10^6/uL (3.93-5.22); RDW 12.6 % (11.7-14.6); RDW-SD 41.1 fL; WBC 10.61 10^3/uL (4.4-10.8)
[2024-08-23 21:26] LABS: ALT 25 U/L (14-59); AST 17 U/L (15-37); Alkaline Phosphatase 82 U/L (46-116); Anion Gap 9.3 mmol/L (3-11); BUN 9 mg/dL (7-18); Bilirubin, Total 0.9 mg/dL (0.2-1.0); CO2 28.7 mmol/L (21.0-32.0); CREATININE 0.9 mg/dL (0.55-1.02); Calcium 9.4 mg/dL (8.5-10.1); Chloride 100 mmol/L (98-107); Estimated GFR 87.11 (mL/min/1.73m2); Glucose 120 mg/dL (74-106); Magnesium 1.6 mg/dL (1.8-2.4); Potassium 3.3 mmol/L (3.5-5.1); Sodium 138 mmol/L (136-145); Total Protein 7.8 g/dL (6.4-8.2)
[2024-08-23 21:27] LABS: HCG Qual (Serum) Negative
[2024-08-23] MEDS: Ondansetron O.D.T. 4 MG TABEF, 3 TABS/BTL PO (22:04)
== END 2024-08-23 22:06 | disposition home or self-care (01) ==
PROVIDERS: Emergency Provider Emergency Medicine; PCP Nurse Practitioner Family
DX: R11.2 Nausea with vomiting, unspecified (principal)
CPT/HCPCS: 36415; 80053; 87637; 96374; 96375; 99284; 83735; 84703; 85025; J0780; J1100; J1885

== ENCOUNTER 2024-10-09 17:10 | Observation (INO) | payer MEDICAID, SELFPAY ==
[2024-10-09 17:14] VITALS: BP 139/87; PULSE 90; RESP 16; TEMP 36.9; O2SAT 98
[2024-10-09 17:21] VITALS: BP 139/87; PULSE 90; RESP 16; TEMP 36.9; O2SAT 98
[2024-10-09] MEDS: Lactated Ringers 1,000 ML 1000 ML IV (17:45)
[2024-10-09] MEDS: Dicyclomine 10 MG CAP PO (17:45)
[2024-10-09 17:46] LABS: Abs Immature Grans 0.05 10^3/uL (0.0-0.06); HCT 42.1 % (36.0-46.0); HGB 13.8 g/dL (11.2-15.7); Immature Grans % 0.3 %; MCH 28.9 pg (27.0-33.0); MCHC 32.8 % (32.0-36.0); MCV 88 fL (80-95); MPV 10.3 fL (8.0-11.0); Platelet Count 297 10^3/uL (130-400); RBC 4.77 10^6/uL (3.93-5.22); RDW 12.9 % (11.7-14.6); RDW-SD 41.7 fL; WBC 15.20 10^3/uL (4.4-10.8)
[2024-10-09 18:03] LABS: ALT 393 U/L (14-59); AST 657 U/L (15-37); Albumin 4.1 g/dL (3.4-5.0); Alkaline Phosphatase 121 U/L (46-116); Anion Gap 10.1 mmol/L (3-11); BUN 7 mg/dL (7-18); Bilirubin, Total 1.7 mg/dL (0.2-1.0); CO2 26.9 mmol/L (21.0-32.0); Calcium 8.9 mg/dL (8.5-10.1); Chloride 103 mmol/L (98-107); Estimated GFR 117.04 (mL/min/1.73m2); Glucose 128 mg/dL (74-106); Lipase 27 U/L (<78); Potassium 3.8 mmol/L (3.5-5.1); Sodium 140 mmol/L (136-145); Total Protein 7.5 g/dL (6.4-8.2)
[2024-10-09 18:34] LABS: Glucose Negative (Negative)
[2024-10-09] MEDS: MORPHine 4 MG/ML SYR IVP (19:15)
[2024-10-09] MEDS: Ondansetron 4 MG/2 ML VIAL IVP (19:15)
[2024-10-09] MEDS: Omnipaque 350 MG/ML 100 ML BTL 75 ML IJ (19:49)
[2024-10-09] MEDS: Normal Saline - Diluent 50 ML VIAL IJ (19:50)
--- NOTE | 2024-10-09 19:51 | DI.CT_ITS ---
Exam(s) CT ABDOMEN PELVIS W EXAM: CT ABDOMEN PELVIS W CLINICAL HISTORY: Epigastric abdominal pain. TECHNIQUE: Imaging Protocol: Axial computed tomography images with coronal and sagittal reformatted images were created and reviewed CONTRAST MATERIAL: Intravenous: Omnipaque-350 75cc Oral: None COMPARISON: CT CT ABDOMEN PELVIS W from 08/21/2023 FINDINGS: VISUALIZED LUNG BASES: There are mild increased markings both lung bases. There are no pleural effusions.. ABDOMEN: There is no ascites. LIVER: There are no focal hepatic lesions evident. No dilated intrahepatic ducts. GALLBLADDER/BILIARY: No obvious acute gallbladder pathology. CBD is not dilated. PANCREAS: No evidence of pancreatic mass nor dilatation of the pancreatic duct. SPLEEN: Spleen is not enlarged. No obvious intrasplenic lesions. Splenic and portal veins are patent. ADRENALS: There are no significant adrenal masses. KIDNEYS:No cysts evident. No solid renal masses. No calculi nor hydronephrosis.. ABDOMINAL AORTA: Abdominal aorta is not enlarged. LYMPH NODES:There is no retroperitoneal nor paraaortic adenopathy. ABDOMINAL WALL: No evidence of significant anterior abdominal wall nor inguinal hernia. GI: No evidence of bowel obstruction, free air, nor abscess. No evidence of appendicitis. However, there appears to be diffuse colitis pattern involving the colon at and distal to the splenic flexure. There are few uncomplicated diverticuli in left side of the colon. No evidence of diverticulitis. PELVIS: GI: No evidence of appendicitis.No evidence of sigmoid diverticulitis. LYMPH NODES: There is no intrapelvic nor inguinal adenopathy. REPRODUCTIVE: Uterus is anteverted and there is a properly positioned IUD in the endometrial canal. The right ovary appears unremarkable. There is a follicular cyst in the left ovary which measures 1.4 x 1.3 cm. No surrounding free fluid in the adnexal regions and cul-de-sac. URINARY BLADDER: No calculi nor obvious masses evident OSSEOUS: No fractures and no significant osseous lesions. IMPRESSION: 1. There is a diffuse colitis pattern involving the large bowel at and distal to the hepatic flexure. 2. There is a 14 x 13 mm follicular cyst in left ovary. No surrounding fluid. 3. There is an IUD in satisfactory position in the endometrial canal of the uterus. RADIATION DOSE DELIVERED: 562.96mGy.cm Total DLP DATA REPOSITORY: All CT scans at this facility are submitted to the National Radiology Data Registry (NRDR) Dose Index Registry (DIR) with the [employer] ([employer]). RADIATION OPTIMIZATION: All CT scans at this facility use at least one of these dose optimization techniques: automated exposure control; mA and/or kV adjustment per patient size (includes targeted exams where dose is matched to clinical indication); or iterative reconstruction.
[2024-10-09] MEDS: ACETAMINOPHEN 1,000 MG/100 ML BTL 400 MG IVPB (20:18)
--- NOTE | 2024-10-09 20:42 | W.ED.GENAD ---
Discharge Plan Discharge Details Chief Complaint: Abd Prob Clinical Impression: Transaminitis, Epigastric abdominal pain Primary Care Provider: Kian Coughlin ED Provider: Gregg Lee Home Meds and New Rx's Prescriptions: No Action Liletta 20.4 mcg/24 hrs (8 yrs) 52 mg intrauterine device 1 device intrauterine ONCE Rx Instructions: as a single dose Canabanoid oil 20 mg See Rx Instructions translingual .COMPLEX Rx Instructions: translingually; levalbuterol tartrate [Xopenex HFA] 45 mcg/actuation HFA aerosol inhaler 2 inh inhalation Q6H PRN guanfacine 2 mg tablet 2 mg PO DAILY cetirizine [Zyrtec] 10 mg Tablet 10 mg PO DAILY Asmanex Twisthaler 220 mcg/ actuation (120) aerosol powdr breath activated 2 inh INHALATION QHS Patient Comments: INHALE 2 PUFFS BY INHALATION ROUTE EVERY DAY AT NIGHTTIME lisdexamfetamine [Vyvanse] 10 mg capsule 10 mg PO DAILY Patient Comments: TAKE 1 CAPSULE BY MOUTH TWICE A DAY Rx Instructions: can take BID PRN omeprazole 40 mg capsule,delayed release(DR/EC) 40 mg PO DAILY Patient Comments: TAKE 1 CAPSULE BY MOUTH 30 MINUTES BEFORE A MEAL HPI General Date/Time Provider Initiated Documentation: 10/09/24 17:39. 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 Patient states that at around 1 PM patient had an episode of diarrhea and constipation, after which the patient developed mild epigastric pain. Patient has a history of a duodenal ulcer for which they take omeprazole. Patient denies any vomiting, bloody diarrhea, or bloody stool. Patient describes the pain is crampy in nature. No other complaints at this time. Related Data Home Medications ?Medication ?Instructions ?Recorded ?Confirmed cetirizine 10 mg tablet (Zyrtec) 10 mg PO DAILY 11/12/22 10/09/24 lisdexamfetamine 10 mg capsule 10 mg PO DAILY 11/12/22 10/09/24 (Vyvanse) mometasone 220 mcg/actuation(120 2 inh inhalation QHS 11/12/22 10/09/24 doses)breath activated powder inhaler (Asmanex Twisthaler) levonorgestrel 20.4 mcg/24 hr (up 1 device intrauterine ONCE 11/27/22 10/09/24 to 8 yrs) 52 mg intrauterine device (Liletta) Canabanoid oil See Rx Instructions translingual 03/18/23 10/09/24 .COMPLEX guanfacine 2 mg tablet 2 mg PO DAILY 03/18/23 10/09/24 levalbuterol tartrate 45 2 inh inhalation Q6H PRN 10/09/23 10/09/24 mcg/actuation aerosol inhaler (Xopenex HFA) omeprazole 40 mg capsule,delayed 40 mg PO DAILY 10/09/24 10/09/24 release Allergies Allergy/AdvReac Type Severity Reaction Status Date / Time sertraline Allergy Severe Psychosis Verified 10/09/24 17:22 epinephrine AdvReac Severe Other (See Verified 10/09/24 17:22 Comment) augmentin AdvReac Severe Nausea Uncoded 10/09/24 17:22 General Stated Complaint: Abd Prob CRESENCIO: 3 Exam Narrative Exam Narrative: 1.Const: Well-nourished, Well-developed, appearing stated age 2.Eyes: PERRL, no conjunctival injection, and symmetrical lids. 3.ENT: Atraumatic external nose and ears. Moist MM. Neck: Symmetric, trachea midline, No thyromegaly. 4.CVS: +S1/S2, Peripheral pulses 2+ and equal in all extremities. Brisk capillary refill in all extremities. 5.RESP: Unlabored respiratory effort. Clear to auscultation bilaterally. No wheezes rales or rhonchi 6.GI: Soft, nondistended, no guarding or rebound, mild epigastric cramping. Negative Carpio sign, but patient does have mild pain in the right upper quadrant on deep palpation. 7.MSK: Normocephalic/Atraumatic, Extremities w/o deformity or ttp No cyanosis or clubbing, Normal movement of all extremities 8.Skin: Warm, Dry. No rashes or lesions. 9.Neuro: acid loader II-XII grossly intact. Sensation grossly intact, no focal neurologic deficits. 10.Psych: (AAO) x3. Appropriate mood and affect Course Vital Signs Vital signs: Vital Signs Temperature 36.9 C 10/09/24 17:14 Pulse 90 10/09/24 17:14 Respiratory Rate 16 10/09/24 17:14 Blood Pressure 139/87 10/09/24 17:14 Pulse Oximetry 98 10/09/24 17:14 Temperature 36.9 C 10/09/24 17:21 Temperature Source Tympanic 10/09/24 17:21 Pulse 90 10/09/24 17:21 Respiratory Rate 16 10/09/24 17:21 Blood Pressure 139/87 10/09/24 17:21 Blood Pressure Position Supine 10/09/24 17:21 Pulse Oximetry 98 10/09/24 17:21 Oxygen Delivery Method Room Air 10/09/24 17:21 Oxygen Flow Rate 0 10/09/24 17:21 Lab/Test Results Lab/Test Results: Laboratory Tests Range/Units 10/09/24 10/09/24 17:35 18:25 WBC (4.4-10.8) 10^3/uL 15.20 H RBC (3.93-5.22) 10^6/uL 4.77 Hgb (11.2-15.7) g/dL 13.8 Hct (36.0-46.0) % 42.1 MCV (80-95) fL 88 MCH (27.0-33.0) pg 28.9 MCHC (32.0-36.0) % 32.8 RDW (11.7-14.6) % 12.9 Plt Count (130-400) 10^3/uL 297 MPV (8.0-11.0) fL 10.3 Immature Gran % % 0.3 Neutrophils % % 91.0 Lymphocytes % % 3.9 Monocytes % % 4.3 Eosinophils % % 0.2 Basophils % % 0.3 Nucleated RBC % (0.0-0.3) % 0.0 Absolute Neutrophils (1.2-6.7) 10^3/uL 13.83 H Absolute Lymphocytes (1.2-3.4) 10^3/uL 0.59 L Absolute Monocytes (0.1-0.8) 10^3/uL 0.65 Absolute Eosinophils (0.0-0.7) 10^3/uL 0.03 Absolute Basophils (0.0-0.2) 10^3/uL 0.05 VBG Lactate (<or=2.0) mmol/L 1.5 Sodium (136-145) mmol/L 140 Potassium (3.5-5.1) mmol/L 3.8 Chloride (98-107) mmol/L 103 Carbon Dioxide (21.0-32.0) mmol/L 26.9 Anion Gap (3-11) mmol/L 10.1 BUN (7-18) mg/dL 7 Creatinine (0.55-1.02) mg/dL 0.7 Est GFR (CKD-EPI 2020) (mL/min/1.73m2) 117.04 Glucose (74-106) mg/dL 128 H Calcium (8.5-10.1) mg/dL 8.9 Total Bilirubin (0.2-1.0) mg/dL 1.7 H AST (15-37) U/L 657 H ALT (14-59) U/L 393 H Alkaline Phosphatase (46-116) U/L 121 H Total Protein (6.4-8.2) g/dL 7.5 Albumin (3.4-5.0) g/dL 4.1 Lipase (<78) U/L 27 Urine Color (Yellow) Yellow Urine Clarity (Clear) Clear Urine pH (5-8) 6.5 Ur Specific [place] (1.005-1.025) 1.010 Urine Protein (Neg-Trace) mg/dL Negative Urine Ketones (Negative) mg/dL Negative Urine Blood (Negative) Negative Urine Nitrite (Negative) Negative Urine Bilirubin (Negative) Negative Urine Urobilinogen (Up to 0.2) mg/dL 0.2 Ur Leukocyte Esterase (Negative) Negative Urine Glucose (Negative) mg/dL Negative Medical Decision Making 34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 Patient states that at around 1 PM patient had an episode of diarrhea and constipation, after which the patient developed mild epigastric pain. Patient has a history of a duodenal ulcer for which they take omeprazole. Patient denies any vomiting, bloody diarrhea, or bloody stool. Patient describes the pain is crampy in nature. No other complaints at this time. Physical exam demonstrates mild epigastric and right upper quadrant abdominal tenderness. No guarding or rebound. Differential includes cholecystitis, pancreatitis, mild colitis or enteritis. Will get labs, treat the patient's pain, monitor closely and reassess. 8:[address] scan results, patient does have mild white count of 15, left shift, lactate is normal, patient does have notable transaminitis with an AST of 657 and ALT of 393, elevated alk phos at 121, with a bili of 1.7. Lipase normal. Urinalysis negative. This enhances concern for potential cholecystitis or choledocholithiasis. We will send hepatitis screening panel. Patient will be signed out to my colleague Dr. Guillen for follow-up on labs and imaging. PFSH All Active Problems (Updated 10/09/24 @ 20:46 by Gregg Lee DO) Epigastric abdominal pain (Acute) Transaminitis (Acute) Phantosmia (Acute) Family history of gallbladder disease in mother (Acute) Chronic diarrhea (Acute) Environmental allergies (Acute) Asthma (Chronic) Autistic disorder (Acute) Acute diarrhea (Acute) RUQ abdominal pain (Acute) Subcutaneous mass of right lower extremity (Acute) Medical History Generalized anxiety disorder ADHD Surgical History S/p bilateral myringotomy with tube placement History of adenoidectomy Social History Smoking/Tobacco Use Status: Never Smoking risk assessment performed?: Yes Alcohol Intake: never Drug use: Never Substance use type: marijuana Details: CBD gummies at night to sleep. Do you feel safe at home: Yes Do you feel safe in your relationship?: Yes
[2024-10-09 21:13] LABS: Bilirubin, Direct 0.8 mg/dL (0.0-0.2)
--- NOTE | 2024-10-09 21:27 | DI.VRAD_ITS ---
PROCEDURE INFORMATION: Exam: CT Abdomen And Pelvis With Contrast Exam date and time: 10/09/2024 7:12 PM Age: 34 years old Clinical indication: Epigastric abdominal pain TECHNIQUE: Imaging protocol: Computed tomography of the abdomen and pelvis with contrast. Total images: 295 Radiation optimization: All CT scans at this facility use at least one of these dose optimization techniques: automated exposure control; mA and/or kV adjustment per patient size (includes targeted exams where dose is matched to clinical indication); or iterative reconstruction. Contrast material: [id number]; Contrast volume: 75 ml; Contrast route: INTRAVENOUS (IV); COMPARISON: CT ABDOMEN PELVIS W 08/21/2023 3:00 PM FINDINGS: Lungs: Microatelectasis lung bases. Liver: Moderate hepatic steatosis/hepatomegaly. Gallbladder and biliary ducts: No definite gallbladder wall thickening, gallstone or biliary dilatation. Pancreas: No mass or peripancreatic stranding. Spleen: No splenomegaly or splenic nodule. Adrenal glands: No adrenal nodule. Kidneys and ureters: 1 cm right renal cyst. No hydronephrosis. Stomach and bowel: Mild wall thickening transverse, descending and proximal sigmoid colon. No pericolonic stranding. Scattered colonic diverticula. No bowel dilatation. Appendix: No evidence of appendicitis. Intraperitoneal space: No free air or free fluid. Vasculature: No abdominal aortic aneurysm. Lymph nodes: No significant adenopathy. Urinary bladder: No definite bladder wall thickening or stone. Reproductive: Dominant left ovarian follicle. IUD properly positioned. Bones/joints: No acute bony abnormality. Soft tissues: No significant finding, IMPRESSION: Nonspecific colitis. Dictated and Authenticated by: Julito Alcazar MD. Orderin Jesus Escobedo MD
--- NOTE | 2024-10-09 22:12 | W.EDPROG ---
Date of service: 10/09/24 Time of Service: 22:12 Medical Decision Making Patient had presented to ED with abdominal pain through the afternoon with associated constipation/diarrhea. Does report a history of colitis. Pain is worse than it typically is. She was seen initially by Dr. Lee, please see his initial note. Laboratory studies were significant for elevated white count as well as markedly elevated liver function. CT scan has been preliminarily read by radiology as nonspecific mild colitis. Liver, common bile duct, gallbladder all look unremarkable. Patient denies any alcohol use. She has taken 2 doses of Tylenol over the course of the day and does not excessively use Tylenol. Denies any IV drug use and denies sexual encounters. She has had no travel outside of [place]. She has attended the [employer]. An acute hepatitis panel has been sent but results will not return for a couple of days. Patient still having abdominal pain. I am adding coags to her lab panel. I have discussed with hospitalist regarding potential for admission, given her elevated LFTs without evidence of common bile duct dilatation or acute cholecystitis. Will plan hydration, pain control and trend labs. Imaging Data Radiologic Study: Imaging: CT Scan Radiologist's impression: CT Abd/Pelvis - IMPRESSION: Nonspecific colitis. Thank you for allowing us to participate in the care of your patient. Dictated and Authenticated by: Julito Alcazar MD Lab Data Lab results reviewed: Yes I reviewed the patient's lab results. Lab results narrative: see MDM Discharge Plan Disposition Patient Disposition: Admit to [facility] Condition: Fair Discharge Details Clinical Impression: Transaminitis, Epigastric abdominal pain Primary Care Provider: Kian Coughlin ED Provider: Colin Payne Home Meds and New Rx's Prescriptions: No Action Liletta 20.4 mcg/24 hrs (8 yrs) 52 mg intrauterine device 1 device intrauterine ONCE Rx Instructions: as a single dose Canabanoid oil 20 mg See Rx Instructions translingual .COMPLEX Rx Instructions: translingually; levalbuterol tartrate [Xopenex HFA] 45 mcg/actuation HFA aerosol inhaler 2 inh inhalation Q6H PRN guanfacine 2 mg tablet 2 mg PO DAILY cetirizine [Zyrtec] 10 mg Tablet 10 mg PO DAILY Asmanex Twisthaler 220 mcg/ actuation (120) aerosol powdr breath activated 2 inh INHALATION QHS Patient Comments: INHALE 2 PUFFS BY INHALATION ROUTE EVERY DAY AT NIGHTTIME lisdexamfetamine [Vyvanse] 10 mg capsule 10 mg PO DAILY Patient Comments: TAKE 1 CAPSULE BY MOUTH TWICE A DAY Rx Instructions: can take BID PRN omeprazole 40 mg capsule,delayed release(DR/EC) 40 mg PO DAILY Patient Comments: TAKE 1 CAPSULE BY MOUTH 30 MINUTES BEFORE A MEAL
[2024-10-09 22:14] VITALS: BP 122/75; PULSE 85; O2SAT 100
[2024-10-09 23:28] LABS: INR 1.0 (0.9-1.1); PTT Activated 22.1 sec (20.6-30.2); Prothrombin Time 10.0 sec (9.1-11.1)
--- NOTE | 2024-10-10 00:24 | W.PM.HP.N ---
Date of service: 10/10/24 Time of Service: 00:24 Assessment and Plan Assessment and plan (1) RUQ abdominal pain: Status: Acute Assessment and plan: Exact etiology is unknown. Will attach CT results. IMPRESSION: Nonspecific colitis. There is concern about acute hepatitis so hepatitis panel has been ordered await results. Will treat symptomatically for now. (2) Autistic disorder: Status: Acute Assessment and plan: Follow-up in the outpatient setting History of Present Illness History of Present Illness Chief Complaint: abdominal pain Narrative: This is a 34-year-old female presents with abdominal pain which began this afternoon. Patient does have a history of significant abdominal pain recently had a panendoscopy with results of her pending. At any rate during her workup a CMP was ordered and was indicative of acute liver injury. Originally the plan was to discharge and return to the ED tomorrow as the patient had dog at home with no one to take care of the dog. After some communications with family or friends field technical support consultant for the dog was found and the patient decided to stay in the hospital overnight. Considering the significant elevations in the patient's LFTs I agree that it was probably a good idea to bring the patient in. Patient states that she has [place] and there is some concern about hepatitis A although this is not a formal diagnosis at this time. Acute hepatitis panel has been ordered. In regards to the labs, the AST is 657 with ALT of 393. Alk phos is 121. Total bili 1.7 with a direct bili of 0.8. The patient does not have a history of liver disorder. Denies any alcohol use denies any Tylenol use of any significant amount. PFSH All Active Problems (Updated 10/09/24 @ 20:46 by Gregg Lee DO) Epigastric abdominal pain (Acute) Transaminitis (Acute) Phantosmia (Acute) Family history of gallbladder disease in mother (Acute) Chronic diarrhea (Acute) Environmental allergies (Acute) Asthma (Chronic) Autistic disorder (Acute) Acute diarrhea (Acute) RUQ abdominal pain (Acute) Subcutaneous mass of right lower extremity (Acute) Medical History Generalized anxiety disorder ADHD Surgical History S/p bilateral myringotomy with tube placement History of adenoidectomy Social History Smoking/Tobacco Use Status: Never Smoking risk assessment performed?: Yes Alcohol Intake: never Drug use: Never Substance use type: marijuana Details: CBD gummies at night to sleep. Do you feel safe at home: Yes Do you feel safe in your relationship?: Yes Meds Allergies and Home Medications Allergies Allergy/AdvReac Type Severity Reaction Status Date / Time sertraline Allergy Severe Psychosis Verified 10/09/24 17:22 epinephrine AdvReac Severe Other (See Verified 10/09/24 17:22 Comment) augmentin AdvReac Severe Nausea Uncoded 10/09/24 17:22 Home Medications ?Medication ?Instructions ?Recorded ?Confirmed ?Type cetirizine 10 mg tablet (Zyrtec) 10 mg PO DAILY 11/12/22 10/09/24 History lisdexamfetamine 10 mg capsule 10 mg PO DAILY 11/12/22 10/09/24 History (Vyvanse) mometasone 220 mcg/actuation(120 2 inh inhalation QHS 11/12/22 10/09/24 History doses)breath activated powder inhaler (Asmanex Twisthaler) levonorgestrel 20.4 mcg/24 hr (up 1 device intrauterine ONCE 11/27/22 10/09/24 History to 8 yrs) 52 mg intrauterine device (Liletta) Canabanoid oil See Rx Instructions translingual 03/18/23 10/09/24 History .COMPLEX guanfacine 2 mg tablet 2 mg PO DAILY 03/18/23 10/09/24 History levalbuterol tartrate 45 2 inh inhalation Q6H PRN 10/09/23 10/09/24 History mcg/actuation aerosol inhaler (Xopenex HFA) omeprazole 40 mg capsule,delayed 40 mg PO DAILY 10/09/24 10/09/24 History release Exam Narrative Exam Narrative: HEENT-normocephalic atraumatic mucous memories moist oropharynx is clear Neck-no lymphadenopathy no JVD no thyromegaly Cardiovascular-regular rate and rhythm no murmurs gallops Pulm-clear to auscultation bilaterally with good air exchange Abdomen-no splenomegaly or hepatomegaly is noted. Patient does have tenderness to palpation in the right upper quadrant on deep palpation Extremity-no sinus clubbing or edema bilaterally Neurologic-cranial nerves II through XII intact as tested reflexes upper extremity was tested [id number] appears stated age no apparent distress Results Labs 10/09/24 17:35 10/09/24 17:35 Labs: Laboratory Results - last 24 hr 10/09/24 10/09/24 10/09/24 17:35 18:25 22:36 WBC 15.20 H RBC 4.77 Hgb 13.8 Hct 42.1 MCV 88 MCH 28.9 MCHC 32.8 RDW 12.9 Plt Count 297 MPV 10.3 Immature Gran % 0.3 Neutrophils % 91.0 Lymphocytes % 3.9 Monocytes % 4.3 Eosinophils % 0.2 Basophils % 0.3 Nucleated RBC % 0.0 Absolute Neutrophils 13.83 H Absolute Lymphocytes 0.59 L Absolute Monocytes 0.65 Absolute Eosinophils 0.03 Absolute Basophils 0.05 PT Cancelled INR Cancelled APTT Cancelled VBG Lactate 1.5 Sodium 140 Potassium 3.8 Chloride 103 Carbon Dioxide 26.9 Anion Gap 10.1 BUN 7 Creatinine 0.7 Est GFR (CKD-EPI 2020) 117.04 Glucose 128 H Calcium 8.9 Total Bilirubin 1.7 H Conjugated Bilirubin 0.8 H AST 657 H ALT 393 H Alkaline Phosphatase 121 H Total Protein 7.5 Albumin 4.1 Lipase 27 Urine Color Yellow Urine Clarity Clear Urine pH 6.5 Ur Specific [place] 1.010 Urine Protein Negative Urine Ketones Negative Urine Blood Negative Urine Nitrite Negative Urine Bilirubin Negative Urine Urobilinogen 0.2 Ur Leukocyte Esterase Negative Urine Glucose Negative 10/09/24 23:05 WBC RBC Hgb Hct MCV MCH MCHC RDW Plt Count MPV Immature Gran % Neutrophils % Lymphocytes % Monocytes % Eosinophils % Basophils % Nucleated RBC % Absolute Neutrophils Absolute Lymphocytes Absolute Monocytes Absolute Eosinophils Absolute Basophils PT 10.0 INR 1.0 APTT 22.1 VBG Lactate Sodium Potassium Chloride Carbon Dioxide Anion Gap BUN Creatinine Est GFR (CKD-EPI 2020) Glucose Calcium Total Bilirubin Conjugated Bilirubin AST ALT Alkaline Phosphatase Total Protein Albumin Lipase Urine Color Urine Clarity Urine pH Ur Specific [place] Urine Protein Urine Ketones Urine Blood Urine Nitrite Urine Bilirubin Urine Urobilinogen Ur Leukocyte Esterase Urine Glucose Last Vital Signs Temp 36.9 C 10/09/24 17:21 Pulse 85 10/09/24 22:14 Resp 16 10/09/24 17:21 BP 122/75 10/09/24 22:14 Pulse Ox 100 10/09/24 22:14 Time Spent Time spent with Patient: <40 minutes Time was spent: preparing to see the patient(eg.review tests), obtaining and/or reviewing separately otained hiistory, ordering medications,tests, procedures, referring, communicating with other health client care specialist, indepentently interpreting results, counseling the patient and care coordination
--- NOTE | 2024-10-10 01:33 | W.PC.ACHO ---
Registration Status: REG ER Primary Language: Preferred Language: ED Information & Data Chief Complaint Abd Prob 10/09/24 20:46 Triage Note Patient here with bilateral 10/09/24 17:14 upper quadrant pain with radiation to bilateral shoulders that started about 3 hours ago. Denies nausea/ vomiting. Is having diarrhea (no blood), hx of colitis. s/p endo/coloscopy x 2 weeks . No fever, but is having chills and sweats. Medical / Surgical History (Last Reviewed 07/08/24 @ 14:13 by Arlen Bernal NP) Generalized anxiety disorder ADHD (Last Reviewed 07/08/24 @ 14:13 by Arlen Bernal NP) S/p bilateral myringotomy with tube placement History of adenoidectomy Most Recent Vital Signs Temperature 36.9 C 10/09/24 17:21 Temperature Source Tympanic 10/09/24 17:21 Pulse 85 10/09/24 22:14 Respiratory Rate 16 10/09/24 17:21 Blood Pressure 122/75 10/09/24 22:14 Blood Pressure Mean 90 10/09/24 22:14 Blood Pressure Position Supine 10/09/24 17:21 Pulse Oximetry 100 10/09/24 22:14 Oxygen Delivery Method Room Air 10/09/24 22:14 Oxygen Flow Rate 0 10/09/24 22:14 Allergies sertraline Allergy (Severe, Verified 10/09/24 17:22) Psychosis epinephrine Adverse Reaction (Severe, Verified 10/09/24 17:22) Other (See Comment) anxiety attacks augmentin Adverse Reaction (Severe, Uncoded 10/09/24 17:22) Nausea Ok to take if she eats yogurt while taking Precautions Isolation Standard precaution 10/09/24 17:18 Active Medications Generic Name Dose Route Start Last Admin Trade Name Freq PRN Reason Stop Dose Admin Iohexol 75 ml 10/09/24 20:00 10/09/24 19:49 Omnipaque 350 Mg/Ml 100 Ml Btl IJ 11/08/24 23:59 75 ml DIRECTED SHAHZAD Administration Sodium Chloride 50 ml 10/09/24 20:00 10/09/24 19:50 Normal Saline - Diluent 50 Ml Vial IJ 50 ml .FOR DI USE SHAHZAD Administration IV IV Catheter Type [Left Saline Lock Antecubital] IV Catheter Gauge [Left 18 Antecubital] Diet Orders Category Date Time Status Regular/Normal [DIET] Nutrition 10/10/24 Breakfast Active Diagnostics 10/09/24 10/09/24 10/09/24 Range/Units 23:05 22:36 18:25 WBC (4.4-10.8) 10^3/uL RBC (3.93-5.22) 10^6/uL Hgb (11.2-15.7) g/dL Hct (36.0-46.0) % MCV (80-95) fL MCH (27.0-33.0) pg MCHC (32.0-36.0) % RDW (11.7-14.6) % Plt Count (130-400) 10^3/uL MPV (8.0-11.0) fL Immature Gran % % Neutrophils % % Lymphocytes % % Monocytes % % Eosinophils % % Basophils % % Nucleated RBC % (0.0-0.3) % Absolute Neutrophils (1.2-6.7) 10^3/uL Absolute Lymphocytes (1.2-3.4) 10^3/uL Absolute Monocytes (0.1-0.8) 10^3/uL Absolute Eosinophils (0.0-0.7) 10^3/uL Absolute Basophils (0.0-0.2) 10^3/uL PT 10.0 Cancelled INR 1.0 Cancelled APTT 22.1 Cancelled VBG Lactate (<or=2.0) mmol/L Sodium (136-145) mmol/L Potassium (3.5-5.1) mmol/L Chloride (98-107) mmol/L Carbon Dioxide (21.0-32.0) mmol/L Anion Gap (3-11) mmol/L BUN (7-18) mg/dL Creatinine (0.55-1.02) mg/dL Est GFR (CKD-EPI 2020) (mL/min/1.73m2) Glucose (74-106) mg/dL Calcium (8.5-10.1) mg/dL Total Bilirubin (0.2-1.0) mg/dL Conjugated Bilirubin (0.0-0.2) mg/dL AST (15-37) U/L ALT (14-59) U/L Alkaline Phosphatase (46-116) U/L Total Protein (6.4-8.2) g/dL Albumin (3.4-5.0) g/dL Lipase (<78) U/L Urine Color Yellow (Yellow) Urine Clarity Clear (Clear) Urine pH 6.5 (5-8) Ur Specific [place] 1.010 (1.005-1.025) Urine Protein Negative (Neg-Trace) mg/dL Urine Ketones Negative (Negative) mg/dL Urine Blood Negative (Negative) Urine Nitrite Negative (Negative) Urine Bilirubin Negative (Negative) Urine Urobilinogen 0.2 (Up to 0.2) mg/dL Ur Leukocyte Esterase Negative (Negative) Urine Glucose Negative (Negative) mg/dL Hepatitis A IgM Ab Hep Bs Antigen Hep B Core Total Ab Hepatitis C Antibody 10/09/24 Range/Units 17:35 WBC 15.20 H (4.4-10.8) 10^3/uL RBC 4.77 (3.93-5.22) 10^6/uL Hgb 13.8 (11.2-15.7) g/dL Hct 42.1 (36.0-46.0) % MCV 88 (80-95) fL MCH 28.9 (27.0-33.0) pg MCHC 32.8 (32.0-36.0) % RDW 12.9 (11.7-14.6) % Plt Count 297 (130-400) 10^3/uL MPV 10.3 (8.0-11.0) fL Immature Gran % 0.3 % Neutrophils % 91.0 % Lymphocytes % 3.9 % Monocytes % 4.3 % Eosinophils % 0.2 % Basophils % 0.3 % Nucleated RBC % 0.0 (0.0-0.3) % Absolute Neutrophils 13.83 H (1.2-6.7) 10^3/uL Absolute Lymphocytes 0.59 L (1.2-3.4) 10^3/uL Absolute Monocytes 0.65 (0.1-0.8) 10^3/uL Absolute Eosinophils 0.03 (0.0-0.7) 10^3/uL Absolute Basophils 0.05 (0.0-0.2) 10^3/uL PT INR APTT VBG Lactate 1.5 (<or=2.0) mmol/L Sodium 140 (136-145) mmol/L Potassium 3.8 (3.5-5.1) mmol/L Chloride 103 (98-107) mmol/L Carbon Dioxide 26.9 (21.0-32.0) mmol/L Anion Gap 10.1 (3-11) mmol/L BUN 7 (7-18) mg/dL Creatinine 0.7 (0.55-1.02) mg/dL Est GFR (CKD-EPI 2020) 117.04 (mL/min/1.73m2) Glucose 128 H (74-106) mg/dL Calcium 8.9 (8.5-10.1) mg/dL Total Bilirubin 1.7 H (0.2-1.0) mg/dL Conjugated Bilirubin 0.8 H (0.0-0.2) mg/dL AST 657 H (15-37) U/L ALT 393 H (14-59) U/L Alkaline Phosphatase 121 H (46-116) U/L Total Protein 7.5 (6.4-8.2) g/dL Albumin 4.1 (3.4-5.0) g/dL Lipase 27 (<78) U/L Urine Color (Yellow) Urine Clarity (Clear) Urine pH (5-8) Ur Specific [place] (1.005-1.025) Urine Protein (Neg-Trace) mg/dL Urine Ketones (Negative) mg/dL Urine Blood (Negative) Urine Nitrite (Negative) Urine Bilirubin (Negative) Urine Urobilinogen (Up to 0.2) mg/dL Ur Leukocyte Esterase (Negative) Urine Glucose (Negative) mg/dL Hepatitis A IgM Ab Pending Hep Bs Antigen Pending Hep B Core Total Ab Pending Hepatitis C Antibody Pending Intake and Output - 24 Hour Total 10/09/24 17:00 thru 10/09/24 22:15 Intake Total 1100 Balance 1100 Weight 74.843 kg Intake: IV 1100 Falls Risk Assessment History of Falls No History 10/09/24 17:18 Contributing Factors No Factors 10/09/24 17:18 Ambulatory Aids Independent 10/09/24 17:18 Tubes/Lines None 10/09/24 17:18 Gait Evaluation No gait disturbance 10/09/24 17:18 Cognition No cognitive impairment 10/09/24 17:18 Fall Total Score 0 10/09/24 17:18 Level of Risk Standard/Low Risk 10/09/24 17:18 Problems (Last Reviewed 07/08/24 @ 14:13 by Arlen Bernal NP) Autistic disorder (Acute) RUQ abdominal pain (Acute) v v v v v v v v v Sending and/or Receiving Nurses: Please use comment section below to note any information pertinent to the patient hand-off not included above. Information / Comments: Pt HX colitis belly scanned confirmed. Hep A suspected, labs sent out to rule this out. Liver enzymes are elevated, Wbc's elevated as well. Pt void spontaneously, 18g lft AC. Admit for Obs.to med/surg unit rm 214 and pain control. Recieved Morphine and 1g tylenol IV in ED. Report received from: Roxana BECK, ED nurse gave report at 0124
[2024-10-10 01:43] VITALS: BP 119/82; PULSE 76; RESP 16; TEMP 36.3; O2SAT 99
[2024-10-10] MEDS: Normal Saline Flush 10 ML SYR IVP ×2 (02:45→09:03)
[2024-10-10 04:48] VITALS: BP 94/65; PULSE 75; RESP 20; TEMP 36.5; O2SAT 97
[2024-10-10 07:31] VITALS: BP 96/64; PULSE 81; RESP 18; TEMP 36.8; O2SAT 98
[2024-10-10 07:34] LABS: Abs Immature Grans 0.02 10^3/uL (0.0-0.06); HCT 37.2 % (36.0-46.0); HGB 12.2 g/dL (11.2-15.7); Immature Grans % 0.3 %; MCH 28.9 pg (27.0-33.0); MCHC 32.8 % (32.0-36.0); MCV 88 fL (80-95); MPV 10.4 fL (8.0-11.0); Platelet Count 264 10^3/uL (130-400); RBC 4.22 10^6/uL (3.93-5.22); RDW 12.9 % (11.7-14.6); RDW-SD 41.4 fL; WBC 5.84 10^3/uL (4.4-10.8)
[2024-10-10 07:49] LABS: ALT 863 U/L (14-59); AST 733 U/L (15-37); Albumin 3.2 g/dL (3.4-5.0); Alkaline Phosphatase 150 U/L (46-116); Anion Gap 8.0 mmol/L (3-11); BUN 5 mg/dL (7-18); Bilirubin, Total 3.9 mg/dL (0.2-1.0); CO2 29.0 mmol/L (21.0-32.0); Calcium 8.3 mg/dL (8.5-10.1); Chloride 104 mmol/L (98-107); Estimated GFR 121.47 (mL/min/1.73m2); Glucose 112 mg/dL (74-106); Potassium 3.6 mmol/L (3.5-5.1); Sodium 141 mmol/L (136-145); Total Protein 6.2 g/dL (6.4-8.2)
[2024-10-10] MEDS: Omeprazole 20 MG CAPCR 40 MG PO (09:02)
[2024-10-10] MEDS: Cetirizine 10 MG TAB PO (09:02)
--- NOTE | 2024-10-10 09:23 | PDOC.CMIN ---
Date of service: 10/10/24 Time of Service: 09:23 Care Management Initial Assmt Initial Assessment Reason for Hospitalization: abdominal pain Functional Status/Living Situation Patient Presentation: Deborah was sitting up in bed when CM met with her. She was polite and agreeable to conversation. Deborah was admitted with abdominal pain. Testing was done which revealed elevated liver enzymes and bilirubin. Blood has been sent out for viral hepatitis testing. Her PT/INR remain WNL however additional testing will be done before she is discharged to ensure that has not changed. Deborah lives alone in a single family home in [place]. She shared that the house is owned by her parents who bought it for her. She is independnet at baseline and does not receive any community services. 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) Instrumental Activities of Daily Living (ADLs): Independent Medications Medication Management: No Issues/Barriers identified Physical Functioning/Mobility Assistive Device: none Advance Directives Advance Directives: Do you have an Advance Directive: N 11/12/22, 13:47 AD On File at [facility]: N 11/12/22, 13:47 Date Asked 08/23/24 08/23/24, 20:34 AD Date Reviewed COLST On File at [facility] COLST Date Scanned Code Status Resuscitation Status Full Code Insurance Coverage/Financial Issues Insurance: Medicaid Care Team Visit Care Team Role Provider Type Kian Coughlin Primary Care Provider NON-[facility] STAFF PHYSICIAN Colin Payne MD Emergency Provider [facility] STAFF PHYSICIAN Colin Jain MD Admit Provider [facility] STAFF PHYSICIAN Attending Provider Discharge Potential Discharge Needs: PCP F/U Appt Anticipated Barriers to Discharge: None Identified Patient/Family Education Needs: Review discharge instructions, discuss Ask Me Three Transportation: Private vehicle Plan: Anticipate Deborah will be discharged home with no new services when medically cleared. She will follow up with her community providers and plan of care and transport with family/friend. CM will follow and continue to assess for discharge needs. Social Determinants of Health Screening Social Determinants of health last assessed in clinic: 10/09/24 Will the Patient Participate in the Screening?: Declined to provide Do you worry about having a steady place to live?: no Problems where you live: no known problems In the past 12 months, have you had to go without electric, gas, oil or water in your home?: no Has lack of transportation kept you from medical appointments or from doing things needed for daily living?: no Has anyone in your life made you feel unsafe or unsupported?: no How hard is it for you to pay for the very basics like food, housing, medical care, and heating? Would you say it is:: Not hard at all Do you want help finding or keeping work or a job?: I do not need or want help If for any reason you need help with day-to-day activities such as bathing, preparing meals, shopping, managing finances, etc., do you get the help you need?: I don?t need any help How often do you feel lonely or isolated from those around you?: Never Do you speak a language other than British at home?: No Does the patient want assistance with any of the above?: No PFSH All Active Problems (Updated 10/10/24 @ 14:09 by Guillermo Alvares) DVT prophylaxis (Acute) Hepatitis (Acute) Epigastric abdominal pain (Acute) Transaminitis (Acute) Phantosmia (Acute) Family history of gallbladder disease in mother (Acute) Chronic diarrhea (Acute) Environmental allergies (Acute) Asthma (Chronic) Autistic disorder (Acute) Acute diarrhea (Acute) RUQ abdominal pain (Acute) Subcutaneous mass of right lower extremity (Acute) Medical History Generalized anxiety disorder ADHD Surgical History S/p bilateral myringotomy with tube placement History of adenoidectomy Social History Smoking/Tobacco Use Status: Never Smoking risk assessment performed?: Yes Alcohol Intake: never Drug use: Never Substance use type: marijuana Details: CBD gummies at night to sleep. Housing: house Do you feel safe at home: Yes Do you feel safe in your relationship?: Yes
[2024-10-10 10:54] LABS: INR 1.0 (0.9-1.1); Prothrombin Time 10.4 sec (9.1-11.1)
[2024-10-10 11:04] LABS: Acetaminophen < 2 ug/mL (10-30)
[2024-10-10 11:23] VITALS: BP 97/61; PULSE 100; RESP 18; TEMP 36.9; O2SAT 98
[2024-10-10 13:11] LABS: Cannabinoids THC Positive (Negative); METHADONE URINE SCREEN Negative (Negative)
--- NOTE | 2024-10-10 13:41 | W.PM.PROGNOT ---
Date of Service Date of service: 10/10/24 Time of Service: 13:41 Assessment and Plan Assessment and plan (1) Hepatitis: Status: Acute Assessment and plan: Acute, not present on previous labs though long h/o GI distress. Elevation of bilirubin concerning, though normal INR and mental status reassuring that this isn't acute liver failure. hepatitis panel pending No obstruction or vascular abnormality on CT, consider repeat imaging with u/s if this continues. Given symptoms and worsening liver function, will keep in hospital and trend labs. (2) RUQ abdominal pain: Status: Acute Assessment and plan: History of recurrent abdominal pain and fluctuating consitaption and diarrhea. Records from [facility] reviewed, recent endosocpy/colonoscopy with negative biopsies other than mild esophagitis, no IBD. Pain improved from admission, RUQ most c/w biliary or hepatitis as above. (3) ADHD: Assessment and plan: continue home therapy (4) Asthma: Status: Chronic Assessment and plan: Not active, continue home ICS and albuterol prn (5) DVT prophylaxis: Status: Acute Assessment and plan: ambulatory, low risk overall. Subjective Subjective Patient reports: voiding w/o difficulty; denies vomiting, shortness of breath or fever Interval history since last seen: She is feeling better. The severe RUQ pain has resolved. She has noted she is a little yellow. She did eat breakfast, but only a few bites of lunch, feels full and a little quezey Exam Narrative Exam Narrative: GEN: A&O, NAD HEENT: slight icterus, MMM Cardiovascular-regular rate and rhythm no murmurs gallops Pulm-clear to auscultation bilaterally with good air exchange Abdomen-+BS, soft, mild RUQ tendernes to deep palpation, no guarding or rebound, no masses. Extremity-no cyanosis clubbing or edema bilaterally Neuro: no tremor/asterixis Objective Last Vital Signs Temp 36.9 C 10/10/24 11:23 Pulse 100 H 10/10/24 11:23 Resp 18 10/10/24 11:23 BP 97/61 L 10/10/24 11:23 Pulse Ox 98 10/10/24 11:23 Laboratory Results - last 24 hr 10/09/24 10/09/24 10/09/24 17:35 18:25 22:36 WBC 15.20 H RBC 4.77 Hgb 13.8 Hct 42.1 MCV 88 MCH 28.9 MCHC 32.8 RDW 12.9 Plt Count 297 MPV 10.3 Immature Gran % 0.3 Neutrophils % 91.0 Lymphocytes % 3.9 Monocytes % 4.3 Eosinophils % 0.2 Basophils % 0.3 Nucleated RBC % 0.0 Absolute Neutrophils 13.83 H Absolute Lymphocytes 0.59 L Absolute Monocytes 0.65 Absolute Eosinophils 0.03 Absolute Basophils 0.05 PT Cancelled INR Cancelled APTT Cancelled VBG Lactate 1.5 Sodium 140 Potassium 3.8 Chloride 103 Carbon Dioxide 26.9 Anion Gap 10.1 BUN 7 Creatinine 0.7 Est GFR (CKD-EPI 2020) 117.04 Glucose 128 H Calcium 8.9 Total Bilirubin 1.7 H Conjugated Bilirubin 0.8 H AST 657 H ALT 393 H Alkaline Phosphatase 121 H Total Protein 7.5 Albumin 4.1 Lipase 27 Urine Color Yellow Urine Clarity Clear Urine pH 6.5 Ur Specific [place] 1.010 Urine Protein Negative Urine Ketones Negative Urine Blood Negative Urine Nitrite Negative Urine Bilirubin Negative Urine Urobilinogen 0.2 Ur Leukocyte Esterase Negative Urine Glucose Negative Urine Opiates Screen Urine Methadone Screen Acetaminophen Ur Barbiturates Screen Ur Tricyclics Screen Ur Amphetamines Screen U Benzodiazepines Scrn Urine Cocaine Screen Ur THC Screen Ethyl Alcohol 10/09/24 10/10/24 10/10/24 23:05 07:28 10:33 WBC 5.84 RBC 4.22 Hgb 12.2 Hct 37.2 MCV 88 MCH 28.9 MCHC 32.8 RDW 12.9 Plt Count 264 MPV 10.4 Immature Gran % 0.3 Neutrophils % 58.7 Lymphocytes % 28.1 Monocytes % 10.1 Eosinophils % 2.1 Basophils % 0.7 Nucleated RBC % 0.0 Absolute Neutrophils 3.43 Absolute Lymphocytes 1.64 Absolute Monocytes 0.59 Absolute Eosinophils 0.12 Absolute Basophils 0.04 PT 10.0 10.4 INR 1.0 1.0 APTT 22.1 VBG Lactate Sodium 141 Potassium 3.6 Chloride 104 Carbon Dioxide 29.0 Anion Gap 8.0 BUN 5 L Creatinine 0.6 Est GFR (CKD-EPI 2020) 121.47 Glucose 112 H Calcium 8.3 L Total Bilirubin 3.9 H Conjugated Bilirubin AST 733 H ALT 863 H Alkaline Phosphatase 150 H Total Protein 6.2 L Albumin 3.2 L Lipase Urine Color Urine Clarity Urine pH Ur Specific [place] Urine Protein Urine Ketones Urine Blood Urine Nitrite Urine Bilirubin Urine Urobilinogen Ur Leukocyte Esterase Urine Glucose Urine Opiates Screen Urine Methadone Screen Acetaminophen < 2 Ur Barbiturates Screen Ur Tricyclics Screen Ur Amphetamines Screen U Benzodiazepines Scrn Urine Cocaine Screen Ur THC Screen Ethyl Alcohol 3.2 10/10/24 12:40 WBC RBC Hgb Hct MCV MCH MCHC RDW Plt Count MPV Immature Gran % Neutrophils % Lymphocytes % Monocytes % Eosinophils % Basophils % Nucleated RBC % Absolute Neutrophils Absolute Lymphocytes Absolute Monocytes Absolute Eosinophils Absolute Basophils PT INR APTT VBG Lactate Sodium Potassium Chloride Carbon Dioxide Anion Gap BUN Creatinine Est GFR (CKD-EPI 2020) Glucose Calcium Total Bilirubin Conjugated Bilirubin AST ALT Alkaline Phosphatase Total Protein Albumin Lipase Urine Color Urine Clarity Urine pH Ur Specific [place] Urine Protein Urine Ketones Urine Blood Urine Nitrite Urine Bilirubin Urine Urobilinogen Ur Leukocyte Esterase Urine Glucose Urine Opiates Screen Positive A Urine Methadone Screen Negative Acetaminophen Ur Barbiturates Screen Negative Ur Tricyclics Screen Negative Ur Amphetamines Screen Negative U Benzodiazepines Scrn Negative Urine Cocaine Screen Negative Ur THC Screen Positive A Ethyl Alcohol Time Spent with Patient Time Spent with Patient: 35-49 minutes Time was spent: preparing to see the patient(eg.review tests), obtaining and/or reviewing separately otained hiistory, ordering medications,tests, procedures, referring, communicating with other health care companion, indepentently interpreting results, counseling the patient and care coordination
[2024-10-10] MEDS: Mometasone 220 MCG 14 DOSE INHALER 2 PUFF IH (19:45)
[2024-10-10 19:56] VITALS: BP 111/72; PULSE 90; RESP 20; TEMP 37.1; O2SAT 97
[2024-10-10] MEDS: Acetaminophen 325 MG TAB 650 MG PO (21:09)
[2024-10-10 23:29] VITALS: BP 103/68; PULSE 86; RESP 20; TEMP 36.3; O2SAT 99
[2024-10-11 03:55] VITALS: BP 99/63; PULSE 73; RESP 16; TEMP 36.6; O2SAT 97
[2024-10-11 06:52] LABS: ALT 613 U/L (14-59); AST 235 U/L (15-37); Albumin 3.3 g/dL (3.4-5.0); Alkaline Phosphatase 140 U/L (46-116); Bilirubin, Direct 0.3 mg/dL (0.0-0.2); Bilirubin, Total 0.7 mg/dL (0.2-1.0); Total Protein 6.5 g/dL (6.4-8.2)
[2024-10-11 07:01] LABS: INR 1.0 (0.9-1.1); Prothrombin Time 9.9 sec (9.1-11.1)
[2024-10-11 07:51] VITALS: BP 116/80; PULSE 84; RESP 17; TEMP 36.3; O2SAT 100
[2024-10-11] MEDS: Cetirizine 10 MG TAB PO (08:23)
[2024-10-11] MEDS: Omeprazole 20 MG CAPCR 40 MG PO (08:23)
--- NOTE | 2024-10-11 10:54 | DSE_ITS ---
Date of service: 10/11/24 Time of Service: 10:54 DS: Diagnosis Discharge Diagnosis (1) Hepatitis: Status: Acute (2) RUQ abdominal pain: Status: Acute (3) ADHD: (4) Asthma: Status: Chronic (5) DVT prophylaxis: Status: Acute Discharge Plan Disposition Patient Disposition: Home Condition: Good Discharge Details Reason For Visit: abdominal pain Admit Date/Time: 10/10/24 00:22 Admit Provider: Colin Jain Attending Provider: Colin Jain Primary Care Provider: Kian Coughlin Hospital Course Hospital Course: 34 yo F with history of recurrent colitis who presented with epigastric pain and nausea. Her AST and ALT were found to be elevated at 657 and 393 with an alk phos of 121 and bilirubin of 1.7. CT on admission showed hepatomegaly with steatosis and non-specific colitis, which has been seen in the past. She did not have diarrhea. Her LFTs increased overnight from 7/ to 7/5 with AST/ALT of 733/863 and albumin of 3.9. By the morning of 10/11 her bilirubin normalized at 0.7 and AST/ALT improved at 235 and 613. Her pain has resolved. Her INR was never elevated, it remained at 1.0. Acute hepatitis panel was pending at discharge. Her recent colitis work up in cluding biopsies was negative for inflammatory bowel disease. That being said, an evaluation for autoimmune hepatitis with PETER, immune globulin levels may be considered among other possible evaluation. Follow up hepatitis panel results Recommendations for Follow Up Recommended tests to be ordered by follow up provider: Repeat CMP in 3 days (ordered as PCP out of town) Home Meds and New Rx's Prescriptions: Continued Liletta 20.4 mcg/24 hrs (8 yrs) 52 mg intrauterine device 1 device intrauterine ONCE Rx Instructions: as a single dose Canabanoid oil 20 mg See Rx Instructions translingual .COMPLEX Rx Instructions: translingually; levalbuterol tartrate [Xopenex HFA] 45 mcg/actuation HFA aerosol inhaler 2 inh inhalation Q6H PRN cetirizine [Zyrtec] 10 mg Tablet 10 mg PO DAILY Asmanex Twisthaler 220 mcg/ actuation (120) aerosol powdr breath activated 2 inh INHALATION QHS Patient Comments: INHALE 2 PUFFS BY INHALATION ROUTE EVERY DAY AT NIGHTTIME lisdexamfetamine [Vyvanse] 10 mg capsule 10 mg PO DAILY Patient Comments: TAKE 1 CAPSULE BY MOUTH TWICE A DAY Rx Instructions: can take BID PRN omeprazole 40 mg capsule,delayed release(DR/EC) 40 mg PO DAILY Patient Comments: TAKE 1 CAPSULE BY MOUTH 30 MINUTES BEFORE A MEAL guanfacine 2 mg tablet extended release 24 hr 2 mg PO DAILY Patient Comments: TAKE 1 TABLET BY MOUTH DAILY Discharge Instructions Additional Instructions: Follow up with your regular PCP and communications professor as planned. You should get labs done in 3 days. Stand Alone Forms: Nursing Discharge Form Referrals: Kian Coughlin [Primary Care Provider, Medicine] Referral Note: Doctors office will call you with a follow up appointment Activity:: Activity as Tolerated Equipment/Supplies:: No Equipment Needed Diet:: As Tolerated Discharge Orders Discharge Orders: Discharge Order (Routine); Ordered 10/11/24 Ordered By: Guillermo Alvares Other Ambulatory Orders: Comprehensive Metabolic Panel (Routine) Timeframe: 3 Days Facility: [facility] Ordered By: Guillermo Alvares Discharge Data Discharge Date/Time-TO BE ENTERED AT DEPARTURE: 10/11/24 12:42 DS: Summary Time Spent with Patient providing and/or coordinating discharge services: Greater than 30 minutes Status at Discharge Functional status at discharge: independent ambulation Overall status at discharge: patient is progressing back to baseline Mental Status: mental status grossly normal Speech and Movement: speech and movement normal Mood: congruent mood Affect: normal affect Exam Psych Mental Status: mental status grossly normal Speech and Movement: speech and movement normal Mood: congruent mood Affect: normal affect DS: Data Vitals/I&O Vitals and I&O: Vital Signs Temperature 36.3 C L 10/11/24 07:51 Temperature Source Temporal Artery Scan 10/11/24 07:51 Pulse 84 10/11/24 07:51 Pulse Rhythm Regular 10/10/24 01:43 Respiratory Rate 17 10/11/24 07:51 Respiratory Effort Normal 10/10/24 01:43 Respiratory Depth Normal 10/10/24 01:43 Respiratory Pattern Normal 10/10/24 01:43 Blood Pressure 116/80 10/11/24 07:51 Blood Pressure Mean 92 10/11/24 07:51 Blood Pressure Position Supine 10/09/24 17:21 Pulse Oximetry 100 10/11/24 07:51 Oxygen Delivery Method Room Air 10/11/24 07:51 Oxygen Flow Rate 0 10/11/24 07:51 Pain Level 0 10/11/24 07:51 Intake & Output 10/10/24 10/10/24 10/11/24 11:59 23:59 11:59 Intake Total 10 / 250 240 / 250 500 / 500 Output Total 400 / 400 Balance -390 / -150 240 / -150 500 / 500 Weight 84.368 kg Intake: IV 10 / 10 Oral 240 / 240 500 / 500 Output: Urine 400 / 400 Other: Urine Color Light [place] Light [place] Yellow Urine Appearance Clear Clear Urine Odor Strong None Data Completed and Pending Labs on day of discharge: Labs from last 24 hours 10/11/24 10/10/24 10/10/24 06:06 12:40 10:33 PT 9.9 10.4 INR 1.0 1.0 Total Bilirubin 0.7 Conjugated Bilirubin 0.3 H AST 235 H ALT 613 H Alkaline Phosphatase 140 H Total Protein 6.5 Albumin 3.3 L Urine Opiates Screen Positive A Urine Methadone Screen Negative Acetaminophen < 2 Ur Barbiturates Screen Negative Ur Tricyclics Screen Negative Ur Amphetamines Screen Negative U Benzodiazepines Scrn Negative Urine Cocaine Screen Negative Ur THC Screen Positive A Ethyl Alcohol 3.2 PFSH All Active Problems (Updated 10/10/24 @ 14:09 by Guillermo Alvares) DVT prophylaxis (Acute) Hepatitis (Acute) Epigastric abdominal pain (Acute) Transaminitis (Acute) Phantosmia (Acute) Family history of gallbladder disease in mother (Acute) Chronic diarrhea (Acute) Environmental allergies (Acute) Asthma (Chronic) Autistic disorder (Acute) Acute diarrhea (Acute) RUQ abdominal pain (Acute) Subcutaneous mass of right lower extremity (Acute) Medical History Generalized anxiety disorder ADHD Surgical History S/p bilateral myringotomy with tube placement History of adenoidectomy Social History Smoking/Tobacco Use Status: Never Smoking risk assessment performed?: Yes Alcohol Intake: never Drug use: Never Substance use type: marijuana Details: CBD gummies at night to sleep. Housing: house Do you feel safe at home: Yes Do you feel safe in your relationship?: Yes Time Spent with Patient Time Spent with Patient: <45 minutes Time was spent: preparing to see the patient(eg.review tests), obtaining and/or reviewing separately otained hiistory, ordering medications,tests, procedures, referring, communicating with other health respiratory care instructor, indepentently interpreting results, counseling the patient and care coordination
[2024-10-12 10:14] LABS: Hepatitis A Antibody IgM Negative (Negative); Hepatitis C Ab w Rflx HCV PCR Negative (Negative)
== END 2024-10-11 12:42 | disposition home or self-care (01) ==
LOC: ER 22:23 → MS 10-10 01:38
PROVIDERS: Student in an Organized Health Care Education/Training Program; Admitting Provider Hospitalist; Emergency Provider Emergency Medicine; PCP Nurse Practitioner Family; Responsible Provider Family Medicine; Visit Provider Hospitalist
DX: B17.9 Acute viral hepatitis, unspecified (principal); R10.11 Right upper quadrant pain; F84.0 Autistic disorder; F90.9 Attention-deficit hyperactivity disorder, unspecified type; J45.909 Unspecified asthma, uncomplicated; R74.01 Elevation of levels of liver transaminase levels; K52.9 Noninfective gastroenteritis and colitis, unspecified; F41.1 Generalized anxiety disorder; Z79.899 Other long term (current) drug therapy
CPT/HCPCS: 00123; 36415; 80053; 80076; 80307; 83690; 86704; 86709; 86803; 87340; 94640; 96361; 96365; 96366; 96375; 99285; 74177; 80320; 80329; 81003; 82248; 83605; 85025; 85610; 85730; 94664; 99222; 99239; G0378; J0131; J2270; J2405; J3490

== ENCOUNTER 2024-10-14 17:11 | Outpatient (CLI) | payer MEDICAID, SELFPAY ==
[2024-10-14 17:58] LABS: ALT 454 U/L (14-59); AST 108 U/L (15-37); Albumin 4.3 g/dL (3.4-5.0); Alkaline Phosphatase 123 U/L (46-116); Anion Gap 9.1 mmol/L (3-11); BUN 11 mg/dL (7-18); Bilirubin, Total 0.6 mg/dL (0.2-1.0); CO2 27.9 mmol/L (21.0-32.0); Calcium 9.3 mg/dL (8.5-10.1); Chloride 104 mmol/L (98-107); Estimated GFR 121.47 (mL/min/1.73m2); Glucose 94 mg/dL (74-106); Potassium 4.1 mmol/L (3.5-5.1); Sodium 141 mmol/L (136-145); Total Protein 7.7 g/dL (6.4-8.2)
== END 2024-10-14 17:12 | disposition home or self-care (01) ==
LOC: LBO 17:13
PROVIDERS: PCP Nurse Practitioner Family; Visit Provider Family Medicine
DX: R74.01 Elevation of levels of liver transaminase levels (principal)
CPT/HCPCS: 36415; 80053

== ENCOUNTER 2024-10-27 12:55 | Outpatient (REF) | payer MEDICAID, SELFPAY ==
[2024-10-28 10:58] LABS: Campylobacter PCR Negative (Negative); Shiga Toxin PCR Negative (Negative); Shigella/Enteroinvasive Ecoli Negative (Negative)
== END 2024-10-27 12:56 | disposition home or self-care (01) ==
LOC: LBN 12:55
PROVIDERS: PCP Nurse Practitioner Family; Visit Provider Nurse Practitioner Gerontology
DX: R19.8 Other specified symptoms and signs involving the digestive system and abdomen (principal)
CPT/HCPCS: 87505; 83993

== ENCOUNTER 2024-10-27 14:10 | Emergency (ER) | payer MEDICAID, SELFPAY ==
[2024-10-27 14:27] VITALS: BP 110/76; PULSE 121; RESP 16; TEMP 36.7; O2SAT 98
--- NOTE | 2024-10-27 15:50 | W.ED.GENAD ---
Discharge Plan Disposition Patient Disposition: Home Condition: Good Discharge Details Clinical Impression: Colitis Primary Care Provider: Kian Coughlin ED Provider: Roxana Davis Home Meds and New Rx's Prescriptions: Continued Liletta 20.4 mcg/24 hrs (8 yrs) 52 mg intrauterine device 1 device intrauterine ONCE Rx Instructions: as a single dose Canabanoid oil 20 mg See Rx Instructions translingual .COMPLEX Rx Instructions: translingually; levalbuterol tartrate [Xopenex HFA] 45 mcg/actuation HFA aerosol inhaler 2 inh inhalation Q6H PRN cetirizine [Zyrtec] 10 mg Tablet 10 mg PO DAILY Asmanex Twisthaler 220 mcg/ actuation (120) aerosol powdr breath activated 2 inh INHALATION QHS Patient Comments: INHALE 2 PUFFS BY INHALATION ROUTE EVERY DAY AT NIGHTTIME lisdexamfetamine [Vyvanse] 10 mg capsule 10 mg PO DAILY Patient Comments: TAKE 1 CAPSULE BY MOUTH TWICE A DAY Rx Instructions: can take BID PRN omeprazole 40 mg capsule,delayed release(DR/EC) 40 mg PO DAILY Patient Comments: TAKE 1 CAPSULE BY MOUTH 30 MINUTES BEFORE A MEAL guanfacine 2 mg tablet extended release 24 hr 2 mg PO DAILY Patient Comments: TAKE 1 TABLET BY MOUTH DAILY Discharge Instructions Additional Instructions: Tylenol over the counter for pain; follow the directions on the bottle. Call your primary care doctor in the morning to schedule an appointment to followup on your visit here. Continue to followup with GI. Return tot he emergency department for new or worsening symptoms including fever, vomiting, blood in your stool, worsening abdominal pain, or if you have any other concerns. HPI General Mode of arrival: ambulatory. Date/Time Provider Initiated Documentation: 10/27/24 14:16. Limitations to Documentation: no limitations. Information obtained by: patient. HPI Narrative: 34yo F with hx of coliits (unknown what type), currently being followed by GI, presenting wtih diffuse abdominal pain. Pain feels like the beginning of a colitis flare. No N/V; did have some diarrhea yesterday but none since around 10am this morning. Was nonbloody. Her symptoms typically respond well to tylenol however she recently had elevated liver enzymes (she thinks possibly due to morphine) and so is hesitant to take this at home without repeat bloodwork. She states the pain level is not concerning and she would not have presented to the ED for this. Gave stool sample yesterday which she reports was negative for giardia and cryptosporidum, had abdominal US at [facility] yesterday which she reports was normal with a normal gallbladder, liver, and aorta (but poor visulization of pancreas). She reports GI is concerned bowel MRI as a next step. Otherwise in her usual state of health with no fevers, chills, rash, dysuria, hematuria, flank pain, or other concerns. Related Data Home Medications ?Medication ?Instructions ?Recorded ?Confirmed cetirizine 10 mg tablet (Zyrtec) 10 mg PO DAILY 11/12/22 10/27/24 lisdexamfetamine 10 mg capsule 10 mg PO DAILY 11/12/22 10/27/24 (Vyvanse) mometasone 220 mcg/actuation(120 2 inh inhalation QHS 11/12/22 10/27/24 doses)breath activated powder inhaler (Asmanex Twisthaler) levonorgestrel 20.4 mcg/24 hr (up 1 device intrauterine ONCE 11/27/22 10/27/24 to 8 yrs) 52 mg intrauterine device (Liletta) Canabanoid oil See Rx Instructions translingual 03/18/23 10/27/24 .COMPLEX levalbuterol tartrate 45 2 inh inhalation Q6H PRN 10/09/23 10/27/24 mcg/actuation aerosol inhaler (Xopenex HFA) omeprazole 40 mg capsule,delayed 40 mg PO DAILY 10/09/24 10/27/24 release guanfacine 2 mg tablet,extended 2 mg PO DAILY 10/10/24 10/27/24 release 24 hr Allergies Allergy/AdvReac Type Severity Reaction Status Date / Time sertraline Allergy Severe Psychosis Verified 10/27/24 14:34 epinephrine AdvReac Severe Other (See Verified 10/27/24 14:34 Comment) augmentin AdvReac Severe Nausea Uncoded 10/27/24 14:34 General Stated Complaint: Abd Prob CRESENCIO: 3 Review of Systems Narrative: see HPI Exam Narrative Exam Narrative: General: Alert, well appearing, well nourished, in no acute distress. Head: Normocephalic, atraumatic Neck: Trachea midline, ?Neck supple. ENT: ?MMM.? No oropharygeal lesions or exudate. Cardiac: ?RRR, no murmurs appreciated Resp: No respiratory distress. CTAB. Abd: ?Soft, non-distended, mildly TTP LLQ with no rebound or guarding. Negative mcgarry's. : ?No suprapubic tenderness. No CVA tenderness. Extremities: ?No deformities.? No peripheral edema. Neurologic: GCS 15. ? Moves all extremities freely against gravity Course Vital Signs Vital signs: Vital Signs Temperature 36.7 C 10/27/24 14:27 Pulse 121 H 10/27/24 14:27 Respiratory Rate 16 10/27/24 14:27 Blood Pressure 110/76 10/27/24 14:27 Pulse Oximetry 98 10/27/24 14:27 Temperature 36.7 C 10/27/24 14:27 Temperature Source Oral 10/27/24 14:27 Pulse 121 H 10/27/24 14:27 Respiratory Rate 16 10/27/24 14:27 Blood Pressure 110/76 10/27/24 14:27 Blood Pressure Position Sitting 10/27/24 14:27 Pulse Oximetry 98 10/27/24 14:27 Oxygen Delivery Method Room Air 10/27/24 14:27 Oxygen Flow Rate 0 10/27/24 14:27 Pain Level 4 10/27/24 14:27 Medical Decision Making 34yo F with hx of coliits (unknown what type), currently being followed by GI, presenting wtih diffuse abdominal pain which feels like the beginning of a colitis flare. She states the pain level is not concerning and she would not have presented to the ED for this however she is concerned about taking tylenol at home due to recently elevated LFTs. Tachycardiac on arrival after ambulating into [facility], vital signs otherwise reassuring. Mild LLQ tenderness on exam with no rebound or guarding. Well hydrated. Would not get CT imaging at this time. Labs reviewed as below, CBC with mild leukocytosis at 12 (nonsepcific) and no anemia, CMP with normal LFTs and no actionable abnormalities, Mg normal, lipase normal, UA not infected. Repeat VS with HR in 80's. Given IV acetaminophen; on reassessment reprots her pain has improved. Discharged home to continue to followup with PCP and GI. Discharge instructions and return precautions were reviewed with patient who verbalized understanding. All questions were answered and she is in full agreement with the plan. PFSH All Active Problems (Updated 10/27/24 @ 17:54 by Roxana Davis MD) Colitis (Acute) Hepatitis (Acute) Epigastric abdominal pain (Acute) Transaminitis (Acute) Phantosmia (Acute) Family history of gallbladder disease in mother (Acute) Chronic diarrhea (Acute) Environmental allergies (Acute) Acute diarrhea (Acute) Subcutaneous mass of right lower extremity (Acute) Medical History (Updated 10/27/24 @ 17:54 by Roxana Davis MD) Presence of Liletta IUD Placed 08/07/22 under anesthesia LOT 17613-90 Polycystic bilateral ovaries Asthma Autistic disorder Generalized anxiety disorder ADHD Surgical History (Updated 10/20/24 @ 13:54 by Anh Marrero RN) S/p bilateral myringotomy with tube placement History of adenoidectomy 2000 Social History Smoking/Tobacco Use Status: Never Smoking risk assessment performed?: Yes Alcohol Intake: never Drug use: Never Substance use type: marijuana Details: CBD gummies at night to sleep. Housing: house Do you feel safe at home: Yes Do you feel safe in your relationship?: Yes
[2024-10-27 16:01] LABS: Abs Immature Grans 0.03 10^3/uL (0.0-0.06); HCT 43.8 % (36.0-46.0); HGB 14.4 g/dL (11.2-15.7); Immature Grans % 0.2 %; MCH 29.5 pg (27.0-33.0); MCHC 32.9 % (32.0-36.0); MCV 90 fL (80-95); MPV 10.7 fL (8.0-11.0); Platelet Count 297 10^3/uL (130-400); RBC 4.88 10^6/uL (3.93-5.22); RDW 13.0 % (11.7-14.6); RDW-SD 43.3 fL; WBC 12.66 10^3/uL (4.4-10.8)
[2024-10-27 16:10] LABS: ALT 45 U/L (14-59); AST 20 U/L (15-37); Albumin 4.2 g/dL (3.4-5.0); Alkaline Phosphatase 85 U/L (46-116); Anion Gap 7.8 mmol/L (3-11); BUN 9 mg/dL (7-18); Bilirubin, Total 0.9 mg/dL (0.2-1.0); CO2 27.2 mmol/L (21.0-32.0); Calcium 9.2 mg/dL (8.5-10.1); Chloride 103 mmol/L (98-107); Estimated GFR 117.04 (mL/min/1.73m2); Glucose 107 mg/dL (74-106); Lipase 38 U/L (<78); Magnesium 2.1 mg/dL (1.8-2.4); Potassium 3.8 mmol/L (3.5-5.1); Sodium 138 mmol/L (136-145); Total Protein 7.8 g/dL (6.4-8.2)
[2024-10-27 16:12] LABS: Glucose Negative (Negative)
[2024-10-27 16:21] LABS: HCG Qual (Urine) Negative
[2024-10-27 16:35] LABS: C & S Indicated? No; RBC 0-2 HPF (0-2); WBC 0-2 HPF (0-5)
[2024-10-27] MEDS: ACETAMINOPHEN 1,000 MG/100 ML BAG 400 MG IVPB (16:45)
[2024-10-27 16:52] VITALS: BP 116/67; RESP 14; O2SAT 96
[2024-10-27 17:50] VITALS: PULSE 89
[2024-10-27 18:28] VITALS: BP 110/76; PULSE 89; RESP 14; TEMP 36.7; O2SAT 96
== END 2024-10-27 18:27 | disposition home or self-care (01) ==
PROVIDERS: Emergency Provider Student in an Organized Health Care Education/Training Program; PCP Nurse Practitioner Family
DX: K52.9 Noninfective gastroenteritis and colitis, unspecified (principal)
CPT/HCPCS: 99284; 99283; 81025; 80053; 83690; 96365; 81003; 81015; 83735; 85025; J0131

== ENCOUNTER 2024-11-02 15:30 | Outpatient (REF) | payer MEDICAID, SELFPAY ==
[2024-11-03 13:52] LABS: Chlamydia Result Negative (Negative); GC Result Negative (Negative)
== END 2024-11-02 15:31 | disposition home or self-care (01) ==
LOC: LBN 15:30
PROVIDERS: PCP Nurse Practitioner Family; Visit Provider Obstetrics & Gynecology
DX: Z11.3 Encounter for screening for infections with a predominantly sexual mode of transmission (principal)
CPT/HCPCS: 87491; 87591

== ENCOUNTER 2024-11-02 16:21 | Outpatient (CLI) | payer MEDICAID, SELFPAY ==
[2024-11-03 22:14] LABS: HIV-1/2 Ag & Ab Screen Negative (Negative)
[2024-11-04 11:19] LABS: HSV Type 2 Ab, IgG Negative (Negative); Syphilis Serology (RPR) Negative (Negative)
== END 2024-11-02 16:22 | disposition home or self-care (01) ==
LOC: LBO 16:21
PROVIDERS: PCP Nurse Practitioner Family; Visit Provider Obstetrics & Gynecology
DX: Z11.3 Encounter for screening for infections with a predominantly sexual mode of transmission (principal)
CPT/HCPCS: 36415; 87389; 86592; 86695; 86696

== ENCOUNTER 2024-12-09 15:01 | Outpatient (REF) | payer MEDICAID, SELFPAY | END 2024-12-09 15:02 | disposition home or self-care (01) | LOC: LBN 15:01 | PROVIDERS: PCP Nurse Practitioner Family; Visit Provider Obstetrics & Gynecology | DX: Z11.3 Encounter for screening for infections with a predominantly sexual mode of transmission (principal) | CPT/HCPCS: 87480; 87510; 87660 ==

== ENCOUNTER 2025-01-14 14:08 | Outpatient (CLI) | payer MEDICAID, SELFPAY ==
[2025-01-14 14:37] LABS: ALT 23 U/L (14-59); AST 15 U/L (15-37); Albumin 4.0 g/dL (3.4-5.0); Alkaline Phosphatase 71 U/L (46-116); Bilirubin, Direct 0.1 mg/dL (0.0-0.2); Bilirubin, Total 0.5 mg/dL (0.2-1.0); Total Protein 7.4 g/dL (6.4-8.2)
== END 2025-01-14 14:09 | disposition home or self-care (01) ==
LOC: LBO 14:08
PROVIDERS: PCP Nurse Practitioner Family; Visit Provider Nurse Practitioner Family
DX: R79.89 Other specified abnormal findings of blood chemistry (principal)
CPT/HCPCS: 36415; 80076

== ENCOUNTER 2025-03-22 15:37 | Outpatient (CLI) | payer MEDICAID, SELFPAY ==
[2025-03-22 16:38] LABS: ALT 21 U/L (10-49); AST 22 U/L (<34); Albumin 4.9 g/dL (3.2-5.0); Alkaline Phosphatase 79 U/L (46-116); Bilirubin, Direct 0.2 mg/dL (<=0.3); Bilirubin, Total 0.7 mg/dL (0.2-1.2); Total Protein 7.7 g/dL (5.7-8.2)
== END 2025-03-22 15:38 | disposition home or self-care (01) ==
LOC: LBO 15:37
PROVIDERS: PCP Nurse Practitioner Family; Visit Provider Nurse Practitioner Family
DX: R79.89 Other specified abnormal findings of blood chemistry (principal)
CPT/HCPCS: 36415; 80076